=== PATIENT | female | born 1970 | race Caucasian/White ===

== ENCOUNTER 2017-01-15 13:08 | Emergency (ER) | payer OTHER ==
[~2017-01-15] VITALS: Ht 160 cm; Wt 80.0 kg
[~2017-01-15 13:08] MED LIST: CELE20TA PO; IMIT25TA PO; LORTA5 PO; SUMA50TA2 PO; XANA0.5T PO
[2017-01-15 13:09] VITALS: BP 124/74; PULSE 71; RESP 14; TEMP 98.5; O2SAT 98
--- NOTE | 2017-01-15 13:26 | PD ---
Physical Exam Date Seen by Provider: Jan 15, 2017 Time Seen by Provider: 13:23 Narrative 46 YOWF C/O INSECT BITE YEST. NOW GETTING RED AND SWOLLEN. 8/10 PAIN. FEVER 101 THIS AM VS REVIEWED AWAITING BED PLACEMENT Data Data Last Documented VS Vital Signs Date Time Temp Pulse Resp B/P Pulse Ox O2 Delivery O2 Flow Rate FiO2 01/15/17 13:09 98.5 71 14 124/74 98 Room Air MDM Supervised Visit with CARROLL: Neftali Randall Jan 15, 2017 13:26
--- NOTE | 2017-01-15 13:36 | PD ---
HPI Chief Complaint: Skin Problem Time Seen by Provider: 13:36 Travel History International Travel<30 days: No Contact w/Intl Traveler<30days: No Traveled to known affect area: No History of Present Illness HPI 46-year-old female presents the emergency department with itchy, tender, erythematous, raised, area to the right anterior shoulder just over the right clavicle. Patient states she woke up with a 3 days ago has gotten progressively more erythematous, tender, and hot. She has had no specific drainage. She has felt feverish but does not know fever. He is worsening since yesterday. She's been taking Tylenol and tramadol for which she takes for her previous shoulder injury which is in a sling on the left. Pain is described as an 8 out of 10. She is allergic to morphine, penicillin, Zithromax. PFSH Past Medical History Diminished Hearing: No Headaches: Yes Musculoskeletal: Yes Respiratory: Yes (HX PLEURISY) Immunizations Current: No Migraines: Yes Past Surgical History Appendectomy: Yes Hysterectomy: Yes Other Surgery: Yes (knee and wrist) Social History Alcohol Use: Yes (RARE) Tobacco Use: Yes (8 CIG/DAY) Substance Use: No Allergies-Medications (Allergen,Severity, Reaction): Coded Allergies: azithromycin (Unverified Allergy, Severe, Swelling, 01/15/17) morphine (Unverified Allergy, Severe, Hallucinations, 01/15/17) penicillin G (Unverified Allergy, Severe, Swelling, 01/15/17) Reported Meds & Prescriptions Reported Meds & Active Scripts Active Sumatriptan Succinate 50 Mg Tab 50 Mg PO BID PRN Reported Xanax 0.5 mg (Alprazolam) Alprazolam 0.5 mg Tab Unknown Dose PO BID Stewart 5-325 mg (Hydrocodone-Acetaminophen 5-325 mg) 5 mg/325 mg Tab Unknown Dose PO Q4H PRN Imitrex (Sumatriptan Succinate) 25 Mg Tab Unknown Dose PO PRN Celexa (Citalopram Hydrobromide) 20 Mg Tab 20 Mg PO DAILY Review of Systems General / Constitutional: Positive: Chills, No: Fever Eyes: No: Visual changes HENT: No: Headaches Cardiovascular: No: Chest Pain or Discomfort Respiratory: No: Shortness of Breath Gastrointestinal: No: Abdominal Pain Genitourinary: No: Dysuria Musculoskeletal: No: Pain Skin: Positive Lesions (the history present illness), No Rash Neurologic: No: Weakness Psychiatric: No: Depression Endocrine: No: Polydipsia Hematologic/Lymphatic: No: Easy Bruising Physical Exam Narrative GENERAL: Patient appears uncomfortable but in no acute distress. SKIN: Warm and dry. Normal color. Normal turgor. Patient has obvious insect bite to the right anterior shoulder with localized induration, erythema, and swelling. It measures approximately 8 cm x 4 cm. There is no obvious abscess formation or drainage. HEAD: Atraumatic. Normocephalic. EYES: Pupils equal and round. No scleral icterus. No injection or drainage. ENT: No nasal bleeding or discharge. Mucous membranes pink and moist. Pharynx is clear. Airway is patent. NECK: Trachea midline. Supple nontender without significant lymphadenopathy. CARDIOVASCULAR: Regular rate and rhythm. RESPIRATORY: No accessory muscle use. Clear to auscultation. Breath sounds equal bilaterally. MUSCULOSKELETAL: Extremities without clubbing, cyanosis, or edema. No obvious deformities. NEUROLOGICAL: Awake and alert. No obvious cranial nerve deficits. Motor grossly within normal limits. Five out of 5 muscle strength in the arms and legs. Normal speech. PSYCHIATRIC: Appropriate mood and affect; insight and judgment normal. Data Data Last Documented VS Vital Signs Date Time Temp Pulse Resp B/P Pulse Ox O2 Delivery O2 Flow Rate FiO2 01/15/17 13:09 98.5 71 14 124/74 98 Room Air Orders Sulfamet-Trimeth Ds 800-160 Mg (Bactrim (01/15/17 13:45) Ibuprofen (Motrin) (01/15/17 13:45) [facility] Medical Decision Making Medical Screen Exam Complete: Yes Emergency Medical Condition: Yes Differential Diagnosis Insect bite. Cellulitis. MRSA. Narrative Course Patient is felt to have an infected insect bite with localized cellulitis as well as local reaction. Patient is given Bactrim DS 1 now. Patient is given ibuprofen 600 mg by mouth now. Patient will be continued on Bactrim DS twice a day 7 days per Patient also given ibuprofen 600 mg 4 times a day #40. Patient can take Tylenol as needed as well. Patient should put warm compresses to the area frequently through the day. Patient follow with her primary care physician or return to emergency department if symptoms are not improving over the next couple of days. Diagnosis Primary Impression: Insect bite Qualified Code: W57.XXXA - Insect bite, initial encounter Additional Impression: Cellulitis Qualified Code: L03.313 - Cellulitis of chest wall Referrals: Primary Care Physician Patient Instructions: Cellulitis (DC), General Instructions Additional Instructions: Patient is felt to have an infected insect bite with localized cellulitis as well as local reaction. Patient is given Bactrim DS 1 now. Patient is given ibuprofen 600 mg by mouth now. Patient will be continued on Bactrim DS twice a day 7 days per Patient also given ibuprofen 600 mg 4 times a day #40. Patient can take Tylenol as needed as well. Patient should put warm compresses to the area frequently through the day. Patient follow with her primary care physician or return to emergency department if symptoms are not improving over the next couple of days. Med/Other Pt SpecificInfo: Prescription(s) given Disposition: 01 DISCHARGE HOME Condition: Stable Sahil Andrade Jan 15, 2017 13:36
[2017-01-15] MEDS ORDERED: IBUPROFEN 600 MG TAB PO ONE (13:45)
[2017-01-15] MEDS ORDERED: SULFAMETHOXAZOLE-TRIMETHOPRIM DS 800-160 MG TAB PO ONE (13:45)
[2017-01-15] MEDS ORDERED: IBUP-232 PO (13:52)
[2017-01-15] MEDS ORDERED: BACT800T5 PO (13:52)
[2017-01-15 15:55] VITALS: RESP 14
== END 2017-01-15 14:19 | disposition home or self-care (01) ==
LOC: NEPK 13:08
DX: S40.261A Insect bite (nonvenomous) of right shoulder, initial encounter (principal); W57.XXXA Bitten or stung by nonvenomous insect and other nonvenomous arthropods, initial encounter; L03.313 Cellulitis of chest wall; F17.210 Nicotine dependence, cigarettes, uncomplicated
CPT/HCPCS: 99283

== ENCOUNTER 2017-01-16 23:28 | Emergency (ER) | payer OTHER ==
[~2017-01-16] VITALS: Ht 160 cm; Wt 77.2 kg
[~2017-01-16 23:28] MED LIST changes: +BACT800T5 PO; -CELE20TA PO; +IBUP-232 PO; -IMIT25TA PO; -LORTA5 PO; -SUMA50TA2 PO; -XANA0.5T PO
[2017-01-16 23:30] VITALS: BP 109/68; PULSE 70; RESP 16; TEMP 98.7; O2SAT 98
--- NOTE | 2017-01-17 00:04 | PD ---
HPI Chief Complaint: Skin Problem Time Seen by Provider: 00:00 Travel History International Travel<30 days: No Contact w/Intl Traveler<30days: No Traveled to known affect area: No History of Present Illness HPI 46-year-old female presents for recheck of skin infection to the right upper chest wall. Symptoms started 4 days goes a small "adair". Since then the area of redness has progressively gotten worse. She reports temperatures as high as 99. Denies any drainage from the area. She was seen yesterday and started on Bactrim but symptoms seem to have gotten worse today which prompted reevaluation. No other complaints. PFSH Past Medical History Diminished Hearing: No Headaches: Yes Musculoskeletal: Yes Respiratory: Yes (HX PLEURISY) Immunizations Current: No Migraines: Yes Past Surgical History Appendectomy: Yes Hysterectomy: Yes Other Surgery: Yes (knee and wrist) Social History Alcohol Use: Yes (RARE) Tobacco Use: Yes (8 CIG/DAY) Substance Use: No Allergies-Medications (Allergen,Severity, Reaction): Coded Allergies: azithromycin (Unverified Allergy, Severe, Swelling, 01/17/17) morphine (Unverified Allergy, Severe, Hallucinations, 01/17/17) penicillin G (Unverified Allergy, Severe, Swelling, 01/17/17) Reported Meds & Prescriptions Reported Meds & Active Scripts Active Doxycycline Hyclate 100 Mg Cap 100 Mg PO BID Ibuprofen 600 Mg Tab 600 Mg PO Q6H PRN Bactrim DS (Sulfamethoxazole-Trimethoprim) 800-160 Mg Tab 1 Tab PO BID Review of Systems Except as stated in HPI: all other systems reviewed are Neg Physical Exam Narrative GENERAL: Well-developed well-nourished female in no acute distress SKIN: Warm and dry. Examination reveals a 2 cm fluctuant abscess overlying the right clavicle. There is some surrounding erythema. There is no drainage. HEAD: Atraumatic. Normocephalic. EYES: Pupils equal and round. No scleral icterus. No injection or drainage. ENT: No nasal bleeding or discharge. Mucous membranes pink and moist. NECK: Trachea midline. No JVD. CARDIOVASCULAR: Regular rate and rhythm. No murmur appreciated. RESPIRATORY: No accessory muscle use. Clear to auscultation. Breath sounds equal bilaterally. GASTROINTESTINAL: Abdomen soft, non-tender, nondistended. Hepatic and splenic margins not palpable. MUSCULOSKELETAL: No obvious deformities. No edema. NEUROLOGICAL: Awake and alert. No obvious cranial nerve deficits. Motor grossly within normal limits. Normal speech. Data Data Last Documented VS Vital Signs Date Time Temp Pulse Resp B/P Pulse Ox O2 Delivery O2 Flow Rate FiO2 01/16/17 23:30 98.7 70 16 109/68 98 Room Air Orders Acetamin-Hydrocod 325-5 Mg ([place] 5-325 (01/17/17 00:15) Lidocai-Epi 1%-1:100,000 Inj (Xylocaine- (01/17/17 00:15) Lidocaine Pf 1% Inj (Xylocaine-Mpf 1% In (01/17/17 00:15) Doxycycline (Vibramycin) (01/17/17 00:45) MDM Medical Decision Making Medical Screen Exam Complete: Yes Emergency Medical Condition: Yes Medical Record Reviewed: Yes Differential Diagnosis Abscess, cellulitis, erysipelas, necrotizing fasciitis, osteomyelitis Narrative Course Examination reveals an abscess to the right upper chest wall superior to the clavicle with some stranding cellulitis. Plan is for incision and drainage to which consents. She is currently on Bactrim, doxycycline will be added for additional coverage pending wounds culture results. She is stable for discharge. Procedures Procedure Narrative INCISION AND DRAINAGE OF ABSCESS: The area was prepped and was sterilely draped. A subcutaneous wheal of 1% Xylocaine with a total number 6 mL was used to anesthetize the area. The area was properly anesthetized. A number [- ] scalpel was used to make a 1-cm incision across the area of the abscess. Cultures were obtained. The abscess was drained an irrigated with normal saline. Diagnosis Primary Impression: Cellulitis Qualified Code: L03.313 - Cellulitis of chest wall Additional Impression: Abscess Additional Instructions: Continue Bactrim. Doxycycline as prescribed. Wash the area with warm soap and water twice daily. Return for evidence of worsening infection. Med/Other Pt SpecificInfo: Prescription(s) given, Wound Care Scripts Doxycycline Hyclate 100 Mg [id number] Mg PO BID #20 CAP Ref 0 Prov:Mark Hubbard MD 01/17/17 Disposition: 01 DISCHARGE HOME Condition: Stable Elder Dobbins Jan 17, 2017 00:04
[2017-01-17] MEDS ORDERED: ACETAMINOPHEN/HYDROcodone 325 MG/5 MG TAB PO ONE (00:15)
[2017-01-17] MEDS ORDERED: LIDOCAINE 1%/EPINEPHrine 1:100,000 SOLN 20 ML VIAL INFIL ONE (00:15)
[2017-01-17] MEDS ORDERED: LIDOCAINE HCL 1% PF 30 ML VIAL INFIL ONE (00:15)
[2017-01-17] MEDS ORDERED: DOXY100C PO (00:42)
[2017-01-17] MEDS ORDERED: DOXYCYCLINE HYCLATE 100 MG CAP PO ONE (00:45)
[2017-01-18] MEDS ORDERED: SUMA50TA2 PO (20:06)
[2017-01-18] MEDS ORDERED: HYDR-3516 PO (20:06)
[2017-01-18] MEDS ORDERED: ALPR.5 PO (20:06)
[2017-01-18] MEDS ORDERED: CELE40TA PO (20:06)
[2017-01-18] MEDS ORDERED: FURO80TA PO (20:11)
[2017-01-18] MEDS ORDERED: K-TA10TA PO (20:11)
[2017-01-18] MEDS ORDERED: GABA800T PO (20:11)
[2017-01-18] MEDS ORDERED: PANT20TA2 PO (20:11)
== END 2017-01-17 02:15 | disposition home or self-care (01) ==
LOC: NEPK 23:28
DX: L03.313 Cellulitis of chest wall (principal)
CPT/HCPCS: 10060; 86403; 87070; 87186

== ENCOUNTER 2017-01-18 12:03 | Inpatient (IN) | payer OTHER ==
[~2017-01-18] VITALS: Ht 160 cm; Wt 77.3 kg
[~2017-01-18 12:03] MED LIST changes: +CELE20TA PO; +DOXY100C PO; +IMIT25TA PO; +LORTA5 PO; +SUMA50TA2 PO; +XANA0.5T PO
[2017-01-18 12:05] VITALS: BP 131/78; PULSE 92; RESP 16; TEMP 98.7; O2SAT 99
[2017-01-18] MEDS ORDERED: ONDANSETRON HCL 4 MG/2 ML VIAL IV PUSH ONE (14:45)
[2017-01-18] MEDS ORDERED: SODIUM CHLOR 0.9% 1000 ML INJ 1,000 ML IV ONE (14:45)
[2017-01-18] MEDS ORDERED: oxyCODONE/ACETAMINOPHEN 5 MG/325 MG TAB PO ONE (14:45)
[2017-01-18] MEDS ORDERED: VANCOMYCIN INJ 1,000 MG in SODIUM CHLOR 0.9% 250 ML INJ 250 ML IV ONE (14:45)
[2017-01-18 15:28] LABS: AUTOMATED NEUTROPHIL # 8.7 TH/MM3 (1.8-7.7); BASOPHIL # 0.1 TH/MM3 (0-0.2); BASOPHIL % 0.7 % (0.0-2.0); EOSINOPHIL # 0.1 TH/MM3 (0-0.4); EOSINOPHIL % 0.7 % (0.0-4.0); HEMATOCRIT 40.3 % (35.0-46.0); HEMO FLAGS DIFF FINAL; LYMPH % 32.7 % (9.0-44.0); LYMPHOCYTE # 4.8 TH/MM3 (1.0-4.8); MEAN CORPUSCULAR HEMOGLOBIN 28.5 PG (27.0-34.0); MEAN CORPUSCULAR HGB CONC 33.6 % (32.0-36.0); MONO % 6.5 % (0.0-8.0); NEUT % 59.4 % (16.0-70.0); PLATELET COUNT 370 TH/MM3 (150-450); RED BLOOD COUNT 4.74 MIL/MM3 (4.00-5.30); RED CELL DISTRIBUTION WIDTH 14.4 % (11.6-17.2); WHITE BLOOD COUNT 14.6 TH/MM3 (4.0-11.0)
[2017-01-18 15:38] LABS: APTT (PATIENT) 29.6 SEC (24.3-30.1); INTERNATIONAL NORMALIZED RATIO 0.9 RATIO
--- NOTE | 2017-01-18 15:43 | PD ---
HPI Chief Complaint: Skin Problem Time Seen by Provider: 14:35 Travel History International Travel<30 days: No Contact w/Intl Traveler<30days: No Traveled to known affect area: No History of Present Illness HPI Patient is a 46-year-old female comes in complaining of an abscess and redness to the right side of her chest. She has been here twice before for the same thing in the past week. She says it originally started as a small pimple on the right collarbone. She came in and got a prescription for Bactrim. She says she was taking that, but the swelling to the area got worse and she came back in. At that time the abscess was drained and she was given a prescription for doxycycline. She has been taking the Bactrim and the doxycycline together since Saturday. She has noticed it is still getting worse. The abscess has increased in size, is still minimally draining. She complains of severe pain to the collarbone. She also has noticed that the redness surrounding it has increased. She says she has had a temperature of 100.1. She denies any other complaints at this time. PFSH Past Medical History Diminished Hearing: No Headaches: Yes Musculoskeletal: Yes Respiratory: Yes (HX PLEURISY) Immunizations Current: No Migraines: Yes Tetanus Vaccination: > 5 Years Influenza Vaccination: No ?: Not LMP: PT STATES NO LONGER HAS A MENSTRUAL CYCLE Past Surgical History Appendectomy: Yes Cholecystectomy: Yes Hysterectomy: Yes (FULL 2007) Other Surgery: Yes (knee and wrist) Social History Alcohol Use: Yes (RARE) Tobacco Use: Yes (8 CIG/DAY) Substance Use: No Allergies-Medications (Allergen,Severity, Reaction): Coded Allergies: azithromycin (Unverified Allergy, Severe, Swelling, 01/18/17) morphine (Unverified Allergy, Severe, Hallucinations, 01/18/17) penicillin G (Unverified Allergy, Severe, Swelling, 01/18/17) Reported Meds & Prescriptions Reported Meds & Active Scripts Active Doxycycline Hyclate 100 Mg Cap 100 Mg PO BID Ibuprofen 600 Mg Tab 600 Mg PO Q6H PRN Bactrim DS (Sulfamethoxazole-Trimethoprim) 800-160 Mg Tab 1 Tab PO BID Review of Systems Except as stated in HPI: all other systems reviewed are Neg General / Constitutional: Positive: Fever Eyes: No: Blurred Vision HENT: No: Headaches, Lightheadedness Cardiovascular: No: Chest Pain or Discomfort Respiratory: No: Shortness of Breath Gastrointestinal: No: Nausea, Vomiting Musculoskeletal: No: Weakness Skin: Positive Change in Pigmentation, Positive Lesions Neurologic: No: Weakness, Dizziness Physical Exam Narrative GENERAL: Awake and alert, in no acute distress. SKIN: 4 cm, oval shaped abscess just above the right collarbone with large area of surrounding erythema and warmth. There is active drainage at this time. HEAD: Atraumatic. Normocephalic. EYES: Pupils equal and round. No scleral icterus. ENT: Mucous membranes pink and moist. NECK: Trachea midline. No JVD. CARDIOVASCULAR: Regular rate and rhythm. No murmur appreciated. RESPIRATORY: No accessory muscle use. Clear to auscultation. Breath sounds equal bilaterally. MUSCULOSKELETAL: No obvious deformities. No clubbing. No cyanosis. No edema. NEUROLOGICAL: Awake and alert. No obvious cranial nerve deficits. Motor grossly within normal limits. Normal speech. PSYCHIATRIC: Appropriate mood and affect; insight and judgment normal. Data Data Last Documented VS Vital Signs Date Time Temp Pulse Resp B/P Pulse Ox O2 Delivery O2 Flow Rate FiO2 01/18/17 16:08 18 01/18/17 12:05 98.7 92 131/78 99 Orders Iv Access Insert/Monitor (01/18/17 14:41) Complete Blood Count With Diff (01/18/17 14:41) Comprehensive Metabolic Panel (01/18/17 14:41) Act Partial Throm Time (Ptt) (01/18/17 14:41) Prothrombin Time / Inr (Pt) (01/18/17 14:41) Ct Thorax/ Chest W Iv Contrast (01/18/17 ) Sodium Chlor 0.9% 1000 Ml Inj (Ns 1000 M (01/18/17 14:45) Oxycodone-Acetamin 5-325 Mg (Percocet (01/18/17 14:45) Ondansetron Inj (Zofran Inj) (01/18/17 14:45) Vancomycin Inj (Vancomycin Inj) (01/18/17 14:45) Wound Culture And Gram Stain (01/18/17 14:43) Blood Culture (01/18/17 14:43) Diphenhydramine (Benadryl) (01/18/17 16:00) Iohexol 350 Inj (Omnipaque 350 Inj) (01/18/17 16:25) Lidocaine 1% Inj (50 Ml) (Xylocaine 1% I (01/18/17 16:45) Hydromorphone Pf Inj (Dilaudid Pf Inj) (01/18/17 16:45) Hydromorphone Pf Inj (Dilaudid Pf Inj) (01/18/17 17:15) Admit Order (Ed Use Only) (01/18/17 ) Levofloxacin 750 Mg Premix Inj (Levaquin (01/18/17 17:15) Labs Laboratory Tests Test 01/18/17 14:55 White Blood Count 14.6 TH/MM3 Red Blood Count 4.74 MIL/MM3 Hemoglobin 13.5 GM/DL Hematocrit 40.3 % Mean Corpuscular Volume 85.0 FL Mean Corpuscular Hemoglobin 28.5 PG Mean Corpuscular Hemoglobin 33.6 % Concent Red Cell Distribution Width 14.4 % Platelet Count 370 TH/MM3 Mean Platelet Volume 7.8 FL Neutrophils (%) (Auto) 59.4 % Lymphocytes (%) (Auto) 32.7 % Monocytes (%) (Auto) 6.5 % Eosinophils (%) (Auto) 0.7 % Basophils (%) (Auto) 0.7 % Neutrophils # (Auto) 8.7 TH/MM3 Lymphocytes # (Auto) 4.8 TH/MM3 Monocytes # (Auto) 1.0 TH/MM3 Eosinophils # (Auto) 0.1 TH/MM3 Basophils # (Auto) 0.1 TH/MM3 CBC Comment DIFF FINAL Differential Comment Prothrombin Time 10.0 SEC Prothromb Time International 0.9 RATIO Ratio Activated Partial 29.6 SEC Thromboplast Time Sodium Level 137 MEQ/L Potassium Level 3.6 MEQ/L Chloride Level 103 MEQ/L Carbon Dioxide Level 26.5 MEQ/L Anion Gap 8 MEQ/L Blood Urea Nitrogen 15 MG/DL Creatinine 0.71 MG/DL Estimat Glomerular Filtration 89 ML/MIN Rate Random Glucose 84 MG/DL Calcium Level 8.6 MG/DL Total Bilirubin 0.5 MG/DL Aspartate Amino Transf 24 U/L (AST/SGOT) Alanine Aminotransferase 37 U/L (ALT/SGPT) Alkaline Phosphatase 138 U/L Total Protein 8.0 GM/DL Albumin 3.8 GM/DL [facility] Medical Decision Making Medical Screen Exam Complete: Yes Emergency Medical Condition: Yes Medical Record Reviewed: Yes Differential Diagnosis Abscess versus cellulitis versus osteomyelitis Narrative Course Patient is a 46-year-old female comes in complaining of pain and swelling with worsening redness of her right chest. Exam shows a 4 cm abscess with large surrounding area of cellulitis. IV established, labs sent. Labs show an elevated white count of 14.6. Already taking Bactrim and doxycycline with worsening of her symptoms. Given vancomycin and Levaquin. Given pain medicine. CT of the chest shows no acute abnormalities. The abscess was drained and dressed. She'll be admitted for further management. Procedures Procedure Narrative INCISION AND DRAINAGE OF ABSCESS: The area was prepped and was sterilely draped. A subcutaneous wheal of 1 % Xylocaine with a total number 8 mL was used to anesthetize the area properly. A number 11 scalpel was used to make a 1 -cm incision across the area of the abscess. The abscess was drained, complex loculations were broken down, and irrigated with normal saline. Cultures were obtained. Sterile dressing applied. Diagnosis Primary Impression: Abscess Additional Impression: Cellulitis Qualified Code: L03.313 - Cellulitis of chest wall Admitting Information Admitting Physician Requests: Admit Condition: Stable Christa Henderson MD Jan 18, 2017 15:43
[2017-01-18 15:48] LABS: ALT (GPT) 37 U/L (10-53); ANION GAP 8 MEQ/L (5-15); AST (GOT) 24 U/L (15-37); BICARBONATE 26.5 MEQ/L (21.0-32.0); BLOOD UREA NITROGEN 15 MG/DL (7-18); CHLORIDE 103 MEQ/L (98-107); GLOMERULAR FILTRATION RATE 89 ML/MIN (>89); POTASSIUM 3.6 MEQ/L (3.5-5.1); SODIUM (NA) 137 MEQ/L (136-145)
[2017-01-18 15:56] LABS: ALKALINE PHOSPHATASE 138 U/L (45-117); TOTAL BILIRUBIN ADULT 0.5 MG/DL (0.2-1.0)
[2017-01-18] MEDS ORDERED: diphenhydrAMINE HCL 25 MG CAP PO ONE (16:00)
[2017-01-18] MEDS ORDERED: IOHEXOL 350 MG/ML 10 ML VIAL (for RAD DIAG) IV ONE (16:25)
--- NOTE | 2017-01-18 16:37 | RADRPT ---
EXAM DATE/TIME: 01/18/2017 16:20 [place] COMPARISON: CT ABDOMEN & PELVIS W CONTRAST, October 16, 2013, 23:13. INDICATIONS : Pain on right upper chest from spider bite. Evaluate for abscess. IV CONTRAST: 70 cc Omnipaque 350 (iohexol) IV RADIATION DOSE: 4.79 CTDIvol (mGy) MEDICAL HISTORY : None SURGICAL HISTORY : Appendectomy. Hysterectomy. ENCOUNTER: Initial ACUITY: 1 week PAIN SCALE: 5/10 LOCATION: Right chest TECHNIQUE: Volumetric scanning of the chest was performed. Using automated exposure control and adjustment of t he mA and/or kV according to patient size, radiation dose was kept as low as reasonably achievable to obtain optimal diagnostic quality images. DICOM format image data is available electronically for review and comparison. Follow-up recommendations for detected pulmonary nodules are based at a minimum on nodule size and pa tient risk factors according to Fleischner Society Guidelines. FINDINGS: The pulmonary parenchyma is clear. There is no pleural effusion. The heart is normal in size. There is no significant hilar or mediastinal adenopathy. No pericardial effusion is present. The limited portions of upper abdomen visualized are unremarkable. The examination does demonstrate some small, nonspecific axillary lymph nodes on the right. The large st measures 1.1 cm. No focal abscess is seen. The osseous structures are grossly intact. CONCLUSION: 1. No focal abscess of the right upper chest wall identified. 2. There some small, nonspecific right axillary lymph nodes the largest measures 1.1 cm. Mark Haile MD on January 18, 2017 at 16:32 Board Certified Radiologist. This report was verified electronically.
[2017-01-18] MEDS ORDERED: HYDROmorphone HCL PF 1 MG/ML VIAL IV PUSH ONE ×2 (16:45→17:15)
[2017-01-18] MEDS ORDERED: LIDOCAINE HCL 1% 50 ML VIAL INFIL ONE (16:45)
[2017-01-18] MEDS ORDERED: LEVOFLOXACIN 750 MG PREMIX INJ 150 ML IV ONE (17:15)
[2017-01-18] MEDS ORDERED: SODIUM CHLORIDE 0.9% FLUSH 10 ML FLUSH IV FLUSH PRN ×2 (18:45→22:00)
[2017-01-18 20:00] VITALS: BP 116/64; PULSE 61; RESP 18; TEMP 96.5; O2SAT 95
[2017-01-18] MEDS ORDERED: ALPR.5 PO ×2 (20:06)
[2017-01-18] MEDS ORDERED: SUMA50TA2 PO ×2 (20:06)
[2017-01-18] MEDS ORDERED: HYDR-3516 PO ×2 (20:06)
[2017-01-18] MEDS ORDERED: CELE40TA PO ×2 (20:06)
[2017-01-18] MEDS ORDERED: FURO80TA PO ×2 (20:11)
[2017-01-18] MEDS ORDERED: GABA800T PO ×2 (20:11)
[2017-01-18] MEDS ORDERED: PANT20TA2 PO ×2 (20:11)
[2017-01-18] MEDS ORDERED: K-TA10TA PO ×2 (20:11)
[2017-01-18] MEDS ORDERED: SODIUM CHLORIDE 0.9% FLUSH 10 ML FLUSH IV FLUSH SCH (21:00)
--- NOTE | 2017-01-18 21:13 | HHI.HP ---
[facility] Service Family Medicine Primary Care Physician Pallavi Stapleton M.D. Admission Diagnosis abscess/cellulitis, failed outpatient treatment Diagnoses: International Travel<30 Days: No Contact w/Intl Traveler<30days: No Known Affected Area: No History of Present Illness Mrs. Manning is a 46-year-old female with a past medical history of anxiety/ depression, and GERD presenting with cellulitis of the right upper chest has failed outpatient antibiotic therapy. Patient states that on 01/13/17, she noticed a "adair" developing on the anterior of her right chest near her collarbone. She states that the area was mildly pruritic and she scratched off the top of the adair. She then cleaned the area with soap and water and BadBalm antibiotic ointment on the wound. The next morning the lesion had become ross sized and erythematous. She attempted to reduce the swelling with hot compresses, but was unsuccessful. The next day, Saturday, she presented to the ED for evaluation and was given Bactrim. After 4 doses she was unable to lay down due to the pain. She then re-presented to the ER where the abscess was incised and drained. She was then discharged home with her original Bactrim in addition to a new prescription of doxycycline. the area became very sore and started to increase in size again. Saturday, today, again the ER attempted to incise and drain the lesion, but was unable to. Otherwise she has no major complaints and denies any shortness of breath, chest pain, NVD, abdominal pain, or calf tenderness. Review of Systems Constitutional: COMPLAINS OF: Fever (100.1 degree fever max), Chills Eyes: DENIES: Blurred vision Ears, nose, mouth, throat: DENIES: Throat pain, Running Nose Respiratory: DENIES: Cough, Shortness of breath Cardiovascular: DENIES: Chest pain Gastrointestinal: COMPLAINS OF: Nausea, DENIES: Abdominal pain, Constipation, Diarrhea, Vomiting Genitourinary: DENIES: Abnormal vaginal bleeding, Dysuria Musculoskeletal: COMPLAINS OF: Joint pain (R torn rotator cuff) Integumentary: COMPLAINS OF: Abnormal pigmentation, DENIES: Pruritus, Rash Hematologic/lymphatic: DENIES: Lymphadenopathy Neurologic: COMPLAINS OF: Headache Psychiatric: DENIES: Mood changes Past Family Social History Past Medical History Fibromyalgia Pleurisy Rjhze-Zcvuhtzopu-Sexzkno GERD Past Surgical History 7 R knee surgeries 3 L wrist surgeries 1 R shoulder collarbone repair Appendectomy Cholecystectomy Hysterectomy Allergies: Coded Allergies: azithromycin (Unverified Allergy, Severe, Swelling, 01/18/17) morphine (Unverified Allergy, Severe, Hallucinations, 01/18/17) penicillin G (Unverified Allergy, Severe, Swelling, 01/18/17) Family History Mother - obesity, clotting disorder, fibromyalgia Father - COPD, HTN Siblings - healthy Children - healthy Social History Lives in [facility] with her . Tobacco - 1/2 ppd 31 years Alcohol - social, once a year Illicit drugs - denies history Physical Exam Vital Signs Vital Signs Date Time Temp Pulse Resp B/P Pulse Ox O2 Delivery O2 Flow Rate FiO2 01/18/17 17:56 18 01/18/17 17:17 18 01/18/17 16:08 18 01/18/17 12:05 98.7 92 16 131/78 99 Physical Exam GENERAL: This is a well-nourished, well-developed female patient lying in bed in no acute distress. SKIN: No rashes, ecchymoses or lesions. Cool and dry. Right chest: Ovoid 4 cm x 2 cm abscess superior to the right clavicle with surrounding area with erythema and warmth. Mild active drainage onto sterile bandage s/p incision and drainage by ER staff. HEENT: Atraumatic, normocephalic with EOMI. PERRLA. Oropharynx clear without erythema or exudate. MMM. No rhinorrhea. CARDIOVASCULAR: Regular rate and rhythm without murmurs, gallops, or rubs. RESPIRATORY: Clear to auscultation bilaterally with no CRW. No increased work of breathing. GASTROINTESTINAL: Abdomen soft, non-tender, nondistended with positive bowel sounds. No masses appreciated. MUSCULOSKELETAL: Extremities without cyanosis or edema. No calf tenderness present. NEUROLOGICAL: Awake and alert. Cranial nerves II through XII intact. Motor and sensory grossly within normal limits. Five out of 5 muscle strength in all muscle groups. Normal speech. Appropriate interaction with examiner and medical staff. Normal speech and judgment. Laboratory Laboratory Tests Test 01/18/17 14:55 White Blood Count 14.6 Red Blood Count 4.74 Hemoglobin 13.5 Hematocrit 40.3 Mean Corpuscular Volume 85.0 Mean Corpuscular Hemoglobin 28.5 Mean Corpuscular Hemoglobin 33.6 Concent Red Cell Distribution Width 14.4 Platelet Count 370 Mean Platelet Volume 7.8 Neutrophils (%) (Auto) 59.4 Lymphocytes (%) (Auto) 32.7 Monocytes (%) (Auto) 6.5 Eosinophils (%) (Auto) 0.7 Basophils (%) (Auto) 0.7 Neutrophils # (Auto) 8.7 Lymphocytes # (Auto) 4.8 Monocytes # (Auto) 1.0 Eosinophils # (Auto) 0.1 Basophils # (Auto) 0.1 CBC Comment DIFF FINAL Differential Comment Prothrombin Time 10.0 Prothromb Time International 0.9 Ratio Activated Partial 29.6 Thromboplast Time Sodium Level 137 Potassium Level 3.6 Chloride Level 103 Carbon Dioxide Level 26.5 Anion Gap 8 Blood Urea Nitrogen 15 Creatinine 0.71 Estimat Glomerular Filtration 89 Rate Random Glucose 84 Calcium Level 8.6 Total Bilirubin 0.5 Aspartate Amino Transf 24 (AST/SGOT) Alanine Aminotransferase 37 (ALT/SGPT) Alkaline Phosphatase 138 Total Protein 8.0 Albumin 3.8 Date/Time Procedure Status Source Growth 01/18/17 17:12 Gram Stain - Final Resulted Wound Chest 01/18/17 17:12 Wound Culture Resulted Wound Chest Pending 01/18/17 15:00 Aerobic Blood Culture Received Blood Peripheral Pending 01/18/17 15:00 Anaerobic Blood Culture Received Blood Peripheral Pending Result Diagram: 01/18/17 1455 01/18/17 1455 Assessment and Plan Assessment and Plan Mrs. Manning is a 46-year-old female with a past medical history of anxiety/ depression, and GERD presenting with cellulitis of the right upper chest has failed outpatient antibiotic therapy Code Status Full code Discussed Condition With Dr. Márquez, ER physician Problem List: (1) Cellulitis Status: Acute Plan: Patient presented to the ER with worsening cellulitis of the right upper chest leading to abscess formation. Patient has failed outpatient antibiotic therapy. She has completed 4 doses of Bactrim and 2 doses of doxycycline prior to presenting on 01/18/17. Chest CT: No focal abscess of the right upper chest wall identified. There is some small nonspecific right axillary lymph node enlargement, the largest measuring 1.1 cm. CBC: WBC 14.6 ESR: Pending K therapy a pad ordered Medications: Hold doxycycline and Bactrim, given Levaquin in ER Vancomycin twice a day with dosing assistance from pharmacy Hydrocodone when necessary for pain, Toradol when necessary for breakthrough pain (2) Abscess Status: Acute Plan: Patient has developed a drainable abscess of right upper chest Please see plan as above (3) HTN (hypertension) Status: Chronic Plan: Patient with history of chronic hypertension Continue home Lasix (4) Depression with anxiety Status: Chronic Plan: Patient with history of depression and anxiety Continue home citalopram and Xanax when necessary daily (5) GERD (gastroesophageal reflux disease) Status: Chronic Plan: Patient with chronic GERD Continue home Protonix (6) Fibromyalgia Status: Chronic Plan: Patient with history of fibromyalgia Continue home gabapentin (7) No contraindication to deep vein thrombosis (DVT) prophylaxis Status: Acute Plan: Lovenox 40 mg daily SCD/TEDs (8) Nutrition, metabolism, and development symptoms Status: Acute Plan: Diet: Regular as tolerated Electrolytes: Within normal limits, continue to monitor Fluids: Tolerating fluids by mouth Prophylaxis: Constipation protocol, Zofran when necessary for nausea/vomiting, Tylenol when necessary for fever Physician Certification 2 Midnight Certification Type: Admission for Inpatient Services Order for Inpatient Services The services are ordered in accordance with Medicare regulations or non- Medicare payer requirements, as applicable. In the case of services not specified as inpatient-only, they are appropriately provided as inpatient services in accordance with the 2-midnight benchmark. Estimated LOS (days): 3 3 days is the estimated time the patient will need to remain in the hospital, assuming treatment plan goals are met and no additional complications. Post-Hospital Plan: Home Problem Qualifiers (1) Cellulitis: Qualified Code: L03.313 - Cellulitis of chest wall Shin Kelley MD R2 Jan 18, 2017 21:13
[2017-01-18] MEDS ORDERED: SUMAtriptan SUCCINATE 50 MG TAB PO PRN (21:45)
[2017-01-18] MEDS ORDERED: SENNOSIDES 8.6 MG TAB PO PRN (22:00)
[2017-01-18] MEDS ORDERED: Vancomycin Consult Pharmacy 1 EA OTHER SCH (22:00)
[2017-01-18] MEDS ORDERED: ACETAMINOPHEN 500 MG CPLT PO PRN (22:00)
[2017-01-18] MEDS: SODIUM CHLORIDE 0.9% FLUSH 10 ML FLUSH IV FLUSH SCH (22:00)
[2017-01-18] MEDS ORDERED: ONDANSETRON ODT 4 MG TAB PO PRN (22:00)
[2017-01-18] MEDS ORDERED: BISACODYL 10 MG SUPP RECTAL PRN (22:00)
[2017-01-18] MEDS ORDERED: ACETAMINOPHEN/HYDROcodone 325 MG/5 MG TAB PO PRN (22:00)
[2017-01-18] MEDS ORDERED: LACTULOSE SYRUP 20 GM/30 ML CUP PO PRN (22:00)
[2017-01-18] MEDS ORDERED: MAGNESIUM HYDROXIDE SUSP 30 ML CUP PO PRN (22:00)
[2017-01-18] MEDS: GABAPENTIN 400 MG CAP PO SCH (22:00)
[2017-01-18] MEDS: ALPRAZolam 0.5 MG TAB PO PRN (22:05)
[2017-01-18] MEDS: DOCUSATE SODIUM 50 MG/SENNA 8.6 MG TAB PO SCH (22:25)
[2017-01-18] MEDS: ACETAMINOPHEN/HYDROcodone 325 MG/7.5 MG TAB PO PRN (22:26)
[2017-01-18] MEDS ORDERED: VANCOMYCIN INJ 1,000 MG in SODIUM CHLOR 0.9% 250 ML INJ 250 ML IV SCH (23:00)
[2017-01-18] MEDS: ENOXAPARIN SODIUM 40 MG/0.4 ML SYRINGE SQ SCH (23:48)
[2017-01-19] VITALS (7 sets, daily range): BP systolic 91–110; BP diastolic 52–62; PULSE 54–83; RESP 17–21; TEMP 96.5–98.1; O2SAT 94–98
[2017-01-19] MEDS: ACETAMINOPHEN/HYDROcodone 325 MG/7.5 MG TAB PO PRN ×5 (03:15→19:02)
[2017-01-19] MEDS: VANCOMYCIN INJ 1,250 MG in SODIUM CHLOR 0.9% 250 ML INJ 250 ML IV SCH ×2 (03:16→15:03)
[2017-01-19] MEDS: FUROSEMIDE 80 MG TAB PO SCH (08:19)
[2017-01-19] MEDS: POTASSIUM CHLORIDE 10 MEQ CONTROLLED RELEASE TAB PO SCH (08:19)
[2017-01-19] MEDS: DOCUSATE SODIUM 50 MG/SENNA 8.6 MG TAB PO SCH ×2 (08:20→21:05)
[2017-01-19] MEDS: CITALOPRAM HYDROBROMIDE 40 MG TAB PO SCH (08:20)
[2017-01-19] MEDS: SODIUM CHLORIDE 0.9% FLUSH 10 ML FLUSH IV FLUSH SCH ×2 (08:20→21:13)
[2017-01-19] MEDS: PANTOPRAZOLE SOD 20 MG DELAYED RELEASE TAB PO SCH (08:20)
[2017-01-19] MEDS ORDERED: LIDOCAINE HCL 2% 20 ML VIAL INFIL ONE (10:30)
[2017-01-19] MEDS: KETOROLAC TROMETHAMINE 30 MG/ML (IVP) VIAL IVP PRN ×2 (10:35→16:35)
[2017-01-19] MEDS ORDERED: HYDROmorphone HCL PF 1 MG/ML VIAL IV PUSH ONE (10:45)
--- NOTE | 2017-01-19 11:58 | HHI.FPPN ---
Subjective Remarks Medicine attending note: Pleasant 46-year-old woman admitted with complicated abscess on the right anterior proximal clavicular area unresponsive to outpatient treatment. Please refer to history of emergency room visits this past week. Early on culture done in ER is suggestive of MRSA with it being coagulase positive staph. Please refer to resident history and physical for complete discussion of details on presentation. Objective Vitals Vital Signs Date Time Temp Pulse Resp B/P Pulse Ox O2 Delivery O2 Flow Rate FiO2 01/19/17 11:00 98 21 01/19/17 08:00 97.0 73 20 91/62 95 01/19/17 04:15 16 01/19/17 04:00 97.0 76 18 110/60 95 01/19/17 00:00 96.5 66 17 93/52 96 01/18/17 20:00 96.5 61 18 116/64 95 01/18/17 17:56 18 01/18/17 17:17 18 01/18/17 16:08 18 01/18/17 12:05 98.7 92 16 131/78 99 I/O 01/18/17 01/18/17 01/18/17 01/19/17 01/19/17 01/19/17 07:00 15:00 23:00 07:00 15:00 23:00 Intake Total 600 ml Balance 600 ml Intake Oral 600 ml # Voids 2 Result Diagram: 01/18/17 1455 01/18/17 1455 Objective Remarks Vital signs noted. Afebrile. Gen. appearance: Pleasant in conversation woman in no acute distress complaining of pain over the area of the abscess. Skin: Inspection of the right proximal clavicular area reveals approximately 5 -6 cm x 4 cm erythematous raised area with fibrinous drainage consistent with persistent abscess.. Please refer to resident's physical exam for complete discussion of details of admission physical exam.. A/P Assessment and Plan Clinical assessment a pleasant 46-year-old woman admitted with persistent cellulitis and abscess formation. Recommend I and D of the abscess and packing. Presumptive evidence is that this is a MRSA infection. Please refer to Dr. Thomason' procedure note for incision and drainage documentation. Patient seen and examined. Case reviewed and discussed with resident team. Agree with plan of care as discussed with me and documented in the resident note. Problem List: (1) Cellulitis Status: Acute Plan: Patient presented to the ER with worsening cellulitis of the right upper chest leading to abscess formation. Patient has failed outpatient antibiotic therapy. She has completed 4 doses of Bactrim and 2 doses of doxycycline prior to presenting on 01/18/17. Chest CT: No focal abscess of the right upper chest wall identified. There is some small nonspecific right axillary lymph node enlargement, the largest measuring 1.1 cm. CBC: WBC 14.6 ESR: Pending K therapy a pad ordered Medications: Hold doxycycline and Bactrim, given Levaquin in ER Vancomycin twice a day with dosing assistance from pharmacy Hydrocodone when necessary for pain, Toradol when necessary for breakthrough pain (2) Abscess Status: Acute Plan: Patient has developed a drainable abscess of right upper chest Please see plan as above (3) HTN (hypertension) Status: Chronic Plan: Patient with history of chronic hypertension Continue home Lasix (4) Depression with anxiety Status: Chronic Plan: Patient with history of depression and anxiety Continue home citalopram and Xanax when necessary daily (5) GERD (gastroesophageal reflux disease) Status: Chronic Plan: Patient with chronic GERD Continue home Protonix (6) Fibromyalgia Status: Chronic Plan: Patient with history of fibromyalgia Continue home gabapentin (7) No contraindication to deep vein thrombosis (DVT) prophylaxis Status: Acute Plan: Lovenox 40 mg daily SCD/TEDs (8) Nutrition, metabolism, and development symptoms Status: Acute Plan: Diet: Regular as tolerated Electrolytes: Within normal limits, continue to monitor Fluids: Tolerating fluids by mouth Prophylaxis: Constipation protocol, Zofran when necessary for nausea/vomiting, Tylenol when necessary for fever Problem Qualifiers (1) Cellulitis: Qualified Code: L03.313 - Cellulitis of chest wall Flex Fraser MD Jan 19, 2017 11:58
--- NOTE | 2017-01-19 12:22 | HHI.FPPN ---
Addendum to progress note ADDENDUM Reason for addendum: Additonal documentation Additional information Procedure note: Incision & Drainage bedside Indication: Drainable abscess on right upper chest Description of procedure: Patient signed and consented and time-out conducted. Pt prepped with Betadine and draped in normal sterile fashion. 8cc 2% plain lidocaine infiltrated in linear fashion. Incision made with #11 scalpel - incision length 2.5cm long. All areas of abscess opened and drained. Culture collected. Area packed with Iodiform ribbon. Excellent hemostasis visualized. At the conclusion of the procedure all instruments removed. No bleeding from incision noted when bandage placed. Plan for drain removal in 48hrs. Performed by Dr. Katelin Madison present and involved for all parts of procedure (Shaista Thomason MD R2) Reason for addendum: Additonal documentation Additional information Attending note: With persistent swelling and pain after initial I and D in the ER it was recommended that patient have a followup I and D to insure all the loculations were opened and drain to be placed. Flex Fraser MD (Flex Fraser MD) Shaista Thomason MD R2 Jan 19, 2017 12:22 Flex Fraser MD Jan 19, 2017 17:03
[2017-01-19 13:05] LABS: BASOPHIL % 0.5 % (0.0-2.0); EOSINOPHIL # 0.2 TH/MM3 (0-0.4); EOSINOPHIL % 2.6 % (0.0-4.0); HEMATOCRIT 35.3 % (35.0-46.0); HEMO FLAGS DIFF FINAL; LYMPH % 50.1 % (9.0-44.0); MEAN CELL VOLUME 85.4 FL (80.0-100.0); MEAN CORPUSCULAR HEMOGLOBIN 28.7 PG (27.0-34.0); MEAN CORPUSCULAR HGB CONC 33.6 % (32.0-36.0); MONO % 9.4 % (0.0-8.0); NEUT % 37.4 % (16.0-70.0); PLATELET COUNT 349 TH/MM3 (150-450); RED BLOOD COUNT 4.13 MIL/MM3 (4.00-5.30); RED CELL DISTRIBUTION WIDTH 14.4 % (11.6-17.2); WHITE BLOOD COUNT 8.1 TH/MM3 (4.0-11.0)
[2017-01-19] MEDS: ALPRAZolam 0.5 MG TAB PO PRN ×2 (13:18→23:47)
[2017-01-19 13:35] LABS: POTASSIUM 3.6 MEQ/L (3.5-5.1)
[2017-01-19 13:42] LABS: WESTERGREN SEDIMENTATION RATE 30 mm/hr (0-20)
[2017-01-19] MEDS: ONDANSETRON HCL 4 MG/2 ML VIAL IV PUSH PRN ×2 (15:09→23:52)
[2017-01-19] MEDS: GABAPENTIN 400 MG CAP PO SCH (21:05)
[2017-01-19] MEDS: ENOXAPARIN SODIUM 40 MG/0.4 ML SYRINGE SQ SCH (21:06)
[2017-01-20] VITALS: BP 111/66; PULSE 64; RESP 18; TEMP 96.4; O2SAT 93
[2017-01-20] MEDS ORDERED: PHARMACY ORDERED LAB ONE (02:45)
[2017-01-20] MEDS: VANCOMYCIN INJ 1,250 MG in SODIUM CHLOR 0.9% 250 ML INJ 250 ML IV SCH (03:11)
[2017-01-20] MEDS: KETOROLAC TROMETHAMINE 30 MG/ML (IVP) VIAL IVP PRN ×3 (03:11→20:24)
[2017-01-20 03:40] LABS: HEMATOCRIT 36.1 % (35.0-46.0); MEAN CELL VOLUME 85.7 FL (80.0-100.0); MEAN CORPUSCULAR HEMOGLOBIN 28.8 PG (27.0-34.0); MEAN CORPUSCULAR HGB CONC 33.6 % (32.0-36.0); PLATELET COUNT 326 TH/MM3 (150-450); RED BLOOD COUNT 4.21 MIL/MM3 (4.00-5.30); RED CELL DISTRIBUTION WIDTH 14.1 % (11.6-17.2); REVIEW FLAG FINAL; WHITE BLOOD COUNT 7.7 TH/MM3 (4.0-11.0)
[2017-01-20 04:00] VITALS: BP 113/52; PULSE 64; RESP 18; TEMP 97.3; O2SAT 92
[2017-01-20 04:10] LABS: VANCOMYCIN TROUGH 18.9 MCG/ML (5.0-10.0)
[2017-01-20 04:23] LABS: BICARBONATE 26.9 MEQ/L (21.0-32.0); POTASSIUM 4.2 MEQ/L (3.5-5.1)
[2017-01-20] MEDS: ACETAMINOPHEN/HYDROcodone 325 MG/7.5 MG TAB PO PRN ×2 (05:45→10:00)
[2017-01-20 08:00] VITALS: BP 90/56; PULSE 53; RESP 22; TEMP 96.9; O2SAT 91
[2017-01-20] MEDS: DOCUSATE SODIUM 50 MG/SENNA 8.6 MG TAB PO SCH ×2 (09:00→20:25)
[2017-01-20] MEDS: CITALOPRAM HYDROBROMIDE 40 MG TAB PO SCH (09:00)
[2017-01-20] MEDS: FUROSEMIDE 80 MG TAB PO SCH (09:00)
[2017-01-20] MEDS: PANTOPRAZOLE SOD 20 MG DELAYED RELEASE TAB PO SCH (09:00)
[2017-01-20] MEDS: POTASSIUM CHLORIDE 10 MEQ CONTROLLED RELEASE TAB PO SCH (09:00)
[2017-01-20] MEDS: SODIUM CHLORIDE 0.9% FLUSH 10 ML FLUSH IV FLUSH SCH ×2 (09:00→20:24)
[2017-01-20 12:00] VITALS: BP 113/58; PULSE 73; RESP 20; TEMP 97.9; O2SAT 94
[2017-01-20] MEDS: ALPRAZolam 0.5 MG TAB PO PRN ×2 (13:04→22:08)
--- NOTE | 2017-01-20 13:28 | HHI.FPPN ---
Subjective Remarks Patient seen and examined by medical team this morning. No acute events overnight per nursing staff. Vital signs remained stable. Patient states that she is doing well, but the pain in her right shoulder persists. The pain is exacerbated by movement, but is at a 6/10 at her baseline without movement. She states that the warmth and erythema has greatly improved. Otherwise she has no complaints and denies any fevers, chills, shortness of breath, chest pain, NVD, abdominal pain, or calf tenderness. Objective Vitals Vital Signs Date Time Temp Pulse Resp B/P (MAP) Pulse Ox O2 Delivery O2 Flow Rate FiO2 01/20/17 06:45 18 01/20/17 04:13 18 01/20/17 04:00 97.3 64 18 113/52 (72) 92 01/20/17 00:52 16 01/20/17 00:00 96.4 64 18 111/66 (81) 93 01/19/17 20:00 97.1 56 18 98/60 (73) 94 01/19/17 16:29 96.9 54 20 102/59 (73) 94 I/O 01/19/17 01/19/17 01/19/17 01/20/17 01/20/17 01/20/17 07:00 15:00 23:00 07:00 15:00 23:00 Intake Total 600 ml 730 ml 480 ml Balance 600 ml 730 ml 480 ml Intake Oral 600 ml 480 ml 480 ml IV Total 250 ml # Voids 2 4 8 # Bowel Movements 0 Result Diagram: 01/20/17 0300 01/20/17 0300 Objective Remarks GENERAL: Well-nourished, well-developed female lying in bed watching TV in no acute distress. SKIN: Warm and dry. No rash. Right upper chest: Inspection of the right proximal clavicular area reveals bandage covering I&D site that is clean, dry, and intact. Removal of the bandage shows a clean 3 cm incision along the abscess line with palpation revealing a 4 x 5 cm palpable abscess with sterile packing in place. No current hemorrhage or drainage appreciated. Patient tender to palpation. Erythema and warmth have greatly decreased from admission examination. HEENT: Atraumatic, normocephalic with EOMI. MMM. No rhinorrhea. No LAD, JVD appreciated. CARDIOVASCULAR: Regular rate and rhythm without obvious murmurs, gallops, or rubs. RESPIRATORY: Clear to auscultation bilaterally with no CRW. No increased work of breathing. GASTROINTESTINAL: Abdomen soft, non-tender, nondistended with positive bowel sounds. No masses appreciated. MUSCULOSKELETAL: No cyanosis or edema. Strength grossly WNL. NEURO/PSYCH: Afocal. Awake, alert, and oriented x3. Normal interaction with medical staff. Normal speech and judgment. A/P Assessment and Plan Mrs. Holcomb is a 46-year-old woman admitted with persistent cellulitis and abscess formation. S/P incision and drainage of the abscess and packing. Presumptive evidence is that this is a MRSA infection. Improving on IV antibiotics. Discharge Planning Likely tomorrow with continued improvement and drain removal. Patient to continue with by mouth antibiotics at time of discharge. Problem List: (1) Cellulitis ICD Codes: L03.90 - Cellulitis, unspecified Status: Acute Plan: Patient presented to the ER with worsening cellulitis of the right upper chest leading to abscess formation. Patient has failed outpatient antibiotic therapy. She has completed 4 doses of Bactrim and 2 doses of doxycycline prior to presenting on 01/18/17. Chest CT: No focal abscess of the right upper chest wall identified. There is some small nonspecific right axillary lymph node enlargement, the largest measuring 1.1 cm. CBC: WBC 14.6 ESR: 30 K thermia pad ordered Medications: Hold doxycycline and Bactrim, given Levaquin once in ER Vancomycin twice a day with dosing assistance from pharmacy Hydrocodone when necessary for pain, Toradol when necessary for breakthrough pain (2) Abscess ICD Codes: L02.91 - Cutaneous abscess, unspecified Status: Acute Plan: Patient has developed a drainable abscess of right upper chest Please see plan as above (3) HTN (hypertension) ICD Codes: I10 - Essential (primary) hypertension Status: Chronic Plan: Patient with history of chronic hypertension Continue home Lasix (4) Depression with anxiety ICD Codes: F41.8 - Other specified anxiety disorders Status: Chronic Plan: Patient with history of depression and anxiety Continue home citalopram and Xanax when necessary daily (5) GERD (gastroesophageal reflux disease) ICD Codes: K21.9 - Gastro-esophageal reflux disease without esophagitis Status: Chronic Plan: Patient with chronic GERD Continue home Protonix (6) Fibromyalgia ICD Codes: M79.7 - Fibromyalgia Status: Chronic Plan: Patient with history of fibromyalgia Continue home gabapentin (7) No contraindication to deep vein thrombosis (DVT) prophylaxis ICD Codes: Z78.9 - Other specified health status Status: Acute Plan: Lovenox 40 mg daily SCD/TEDs (8) Nutrition, metabolism, and development symptoms ICD Codes: R63.8 - Other symptoms and signs concerning food and fluid intake Status: Acute Plan: Diet: Regular as tolerated Electrolytes: Within normal limits, continue to monitor Fluids: Tolerating fluids by mouth Prophylaxis: Constipation protocol, Zofran when necessary for nausea/vomiting, Tylenol when necessary for fever Problem Qualifiers (1) Cellulitis: Shin Kelley MD R2 Jan 20, 2017 13:28
[2017-01-20] MEDS: ACETAMINOPHEN/HYDROcodone 325 MG/10 MG TAB PO PRN ×3 (14:13→22:08)
[2017-01-20] MEDS: VANCOMYCIN 1,000 MG/NS 250 ML IV SCH ×2 (14:14)
[2017-01-20 16:49] VITALS: BP 97/55; PULSE 61; RESP 21; TEMP 97.2; O2SAT 96
[2017-01-20 20:00] VITALS: BP 98/56; PULSE 63; RESP 17; TEMP 97; O2SAT 98
[2017-01-20] MEDS: ONDANSETRON HCL 4 MG/2 ML VIAL IV PUSH PRN (20:23)
[2017-01-20] MEDS: ENOXAPARIN SODIUM 40 MG/0.4 ML SYRINGE SQ SCH (20:24)
[2017-01-20] MEDS: GABAPENTIN 400 MG CAP PO SCH (20:24)
[2017-01-21] VITALS: BP 101/63; PULSE 72; RESP 18; TEMP 96.9; O2SAT 96
[2017-01-21] MEDS: ACETAMINOPHEN/HYDROcodone 325 MG/10 MG TAB PO PRN ×5 (03:19→22:05)
[2017-01-21] MEDS: VANCOMYCIN 1,000 MG/NS 250 ML IV SCH ×4 (03:20→15:19)
[2017-01-21 04:00] VITALS: BP 99/65; PULSE 71; RESP 18; TEMP 97.3; O2SAT 97
[2017-01-21 08:00] VITALS: BP 101/65; PULSE 89; RESP 20; TEMP 97.1; O2SAT 95
[2017-01-21] MEDS: CITALOPRAM HYDROBROMIDE 40 MG TAB PO SCH (08:26)
[2017-01-21] MEDS: FUROSEMIDE 80 MG TAB PO SCH (08:26)
[2017-01-21] MEDS: DOCUSATE SODIUM 50 MG/SENNA 8.6 MG TAB PO SCH ×3 (08:26→22:05)
[2017-01-21] MEDS: POTASSIUM CHLORIDE 10 MEQ CONTROLLED RELEASE TAB PO SCH (08:27)
[2017-01-21] MEDS: PANTOPRAZOLE SOD 20 MG DELAYED RELEASE TAB PO SCH (08:28)
[2017-01-21] MEDS: SODIUM CHLORIDE 0.9% FLUSH 10 ML FLUSH IV FLUSH SCH ×2 (08:31→22:05)
--- NOTE | 2017-01-21 10:55 | HHI.FPPN ---
Subjective Remarks Patient seen and examined bedside. No acute events overnight. Patient states she has been feeling like she is getting a cold. She admits to congestion and sore throat. Denies any fever/chills. Denies any productive sputum. Patient is continuing to complain of pain over her right upper chest where the MRSA lesion is. She states the pain has been constant and throbbing. Her pain is only moderately alleviated by IV pain medications. She has not seen any abnormal discharge from the bandage. (Shaista Thomason MD R2) Objective Vitals Vital Signs Date Time Temp Pulse Resp B/P (MAP) Pulse Ox O2 Delivery O2 Flow Rate FiO2 01/21/17 08:00 97.1 89 20 101/65 (77) 95 01/21/17 04:57 18 01/21/17 04:00 97.3 71 18 99/65 (76) 97 01/21/17 00:00 96.9 72 18 101/63 (76) 96 01/20/17 22:07 16 01/20/17 20:00 97.0 63 17 98/56 (70) 98 01/20/17 16:49 97.2 61 21 97/55 (69) 96 01/20/17 12:00 97.9 73 20 113/58 (76) 94 I/O 01/20/17 01/20/17 01/20/17 01/21/17 01/21/17 01/21/17 07:00 15:00 23:00 07:00 15:00 23:00 Intake Total 250 ml 480 ml 240 ml Balance 250 ml 480 ml 240 ml Intake Oral 480 ml 240 ml IV Total 250 ml # Voids 2 1 # Bowel Movements 3 1 (Shaista Thomason MD R2) Result Diagram: 01/20/17 0300 01/20/17 0300 Objective Remarks GENERAL: Well-nourished, well-developed female lying in bed watching TV in no acute distress. SKIN: Warm and dry. No rash. Right upper chest: Inspection of the right proximal clavicular area reveals bandage covering I&D site that is clean, dry, and intact. Removal of the bandage shows a clean 3 cm incision slightly more opened up than yesterday, now red and beefy in appearance. No current hemorrhage or drainage appreciated. Only a small amount of thin white mucous/pus in bottom of cavity. Patient very tender to palpation. Erythema and warmth have greatly decreased from admission examination. No extension of erythema across any areas of chest. No cellulitis present as was present on admission HEENT: Atraumatic, normocephalic with EOMI. MMM. No rhinorrhea. No LAD, JVD appreciated. CARDIOVASCULAR: Regular rate and rhythm without obvious murmurs, gallops, or rubs. RESPIRATORY: Clear to auscultation bilaterally with no CRW. No increased work of breathing. GASTROINTESTINAL: Abdomen soft, non-tender, nondistended with positive bowel sounds. No masses appreciated. MUSCULOSKELETAL: No cyanosis or edema. Strength grossly WNL. NEURO/PSYCH: Afocal. Awake, alert, and oriented x3. Normal interaction with medical staff. Normal speech and judgment. (Shaista Thomason MD R2) A/P Assessment and Plan Mrs. Holcomb is a 46-year-old woman that was admitted with persistent cellulitis and abscess formation. S/P incision and drainage of the abscess and packing of MRSA+ infection. Improving on IV antibiotics. Discharge Planning Likely tomorrow with continued improvement and drain removal. Patient to continue with by mouth antibiotics at time of discharge. (Shaista Thomason MD R2) Assessment and Plan Patient seen and examined. Case reviewed and discussed with the resident team. Agree with the plan of care as discussed with me and documented in the resident note. (Flex Fraser MD) Problem List: (1) Cellulitis ICD Codes: L03.90 - Cellulitis, unspecified Status: Acute Plan: Patient presented to the ER with worsening cellulitis of the right upper chest leading to abscess formation. Patient has failed outpatient antibiotic therapy. She has completed 4 doses of Bactrim and 2 doses of doxycycline prior to presenting on 01/18/17. Chest CT: No focal abscess of the right upper chest wall identified. There is some small nonspecific right axillary lymph node enlargement, the largest measuring 1.1 cm. CBC: WBC 14.6 ESR: 30 K thermia pad ordered Medications: Hold doxycycline and Bactrim, given Levaquin once in ER Vancomycin twice a day with dosing assistance from pharmacy Hydrocodone when necessary for pain, Toradol when necessary for breakthrough pain (2) Abscess ICD Codes: L02.91 - Cutaneous abscess, unspecified Status: Acute Plan: Patient has developed a drainable abscess of right upper chest Please see plan as above (3) HTN (hypertension) ICD Codes: I10 - Essential (primary) hypertension Status: Chronic Plan: Patient with history of chronic hypertension Continue home Lasix (4) Depression with anxiety ICD Codes: F41.8 - Other specified anxiety disorders Status: Chronic Plan: Patient with history of depression and anxiety Continue home citalopram and Xanax when necessary daily (5) GERD (gastroesophageal reflux disease) ICD Codes: K21.9 - Gastro-esophageal reflux disease without esophagitis Status: Chronic Plan: Patient with chronic GERD Continue home Protonix (6) Fibromyalgia ICD Codes: M79.7 - Fibromyalgia Status: Chronic Plan: Patient with history of fibromyalgia Continue home gabapentin (7) No contraindication to deep vein thrombosis (DVT) prophylaxis ICD Codes: Z78.9 - Other specified health status Status: Acute Plan: Lovenox 40 mg daily SCD/TEDs (8) Nutrition, metabolism, and development symptoms ICD Codes: R63.8 - Other symptoms and signs concerning food and fluid intake Status: Acute Plan: Diet: Regular as tolerated Electrolytes: Within normal limits, continue to monitor Fluids: Tolerating fluids by mouth Prophylaxis: Constipation protocol, Zofran when necessary for nausea/vomiting, Tylenol when necessary for fever (9) URI (upper respiratory infection) ICD Codes: J06.9 - Acute upper respiratory infection, unspecified Status: Acute Plan: Likely viral due to short nature -Continue to monitor -Encourage by mouth hydration (Shaista Thomason MD R2) Problem Qualifiers (1) Cellulitis: Shaista Thomason MD R2 Jan 21, 2017 10:55 Flex Fraser MD Jan 21, 2017 16:05
[2017-01-21 11:08] LABS: MEAN CELL VOLUME 85.5 FL (80.0-100.0); MEAN CORPUSCULAR HEMOGLOBIN 27.9 PG (27.0-34.0); MEAN CORPUSCULAR HGB CONC 32.6 % (32.0-36.0); PLATELET COUNT 339 TH/MM3 (150-450); RED BLOOD COUNT 4.09 MIL/MM3 (4.00-5.30); RED CELL DISTRIBUTION WIDTH 14.1 % (11.6-17.2); REVIEW FLAG FINAL
[2017-01-21 11:21] LABS: BICARBONATE 28.6 MEQ/L (21.0-32.0); POTASSIUM 4.2 MEQ/L (3.5-5.1)
[2017-01-21] MEDS: KETOROLAC TROMETHAMINE 30 MG/ML (IVP) VIAL IVP PRN ×2 (11:44→19:09)
[2017-01-21] MEDS: ALPRAZolam 0.5 MG TAB PO PRN ×2 (11:44→22:04)
[2017-01-21 12:48] VITALS: BP 104/64; PULSE 81; RESP 20; TEMP 98.9; O2SAT 95
[2017-01-21 16:00] VITALS: BP 98/57; PULSE 69; RESP 20; TEMP 96.8; O2SAT 97
[2017-01-21] MEDS ORDERED: diphenhydrAMINE HCL 25 MG CAP PO PRN (16:15)
[2017-01-21 21:19] VITALS: BP 88/51; PULSE 69; RESP 17; TEMP 97.9; O2SAT 96
[2017-01-21] MEDS: GABAPENTIN 400 MG CAP PO SCH (22:04)
[2017-01-21] MEDS: ENOXAPARIN SODIUM 40 MG/0.4 ML SYRINGE SQ SCH (22:04)
[2017-01-22] VITALS: BP 90/53; PULSE 70; RESP 18; TEMP 97.5; O2SAT 92
[2017-01-22] MEDS: ACETAMINOPHEN/HYDROcodone 325 MG/10 MG TAB PO PRN ×5 (01:59→21:09)
[2017-01-22] MEDS: KETOROLAC TROMETHAMINE 30 MG/ML (IVP) VIAL IVP PRN ×4 (01:59→23:04)
[2017-01-22] MEDS: VANCOMYCIN 1,000 MG/NS 250 ML IV SCH ×2 (02:00)
[2017-01-22] MEDS ORDERED: PHARMACY ORDERED LAB ONE (02:45)
[2017-01-22 04:00] VITALS: BP 87/50; PULSE 63; RESP 18; TEMP 96; O2SAT 94
--- NOTE | 2017-01-22 06:26 | HHI.DCPOC ---
Discharge Care Plan Diagnosis: (1) Cellulitis (2) Abscess Goals to Promote Your Health * To prevent worsening of your condition and complications * To maintain your health at the optimal level Directions to Meet Your Goals Take your medications as prescribed Follow your dietary instruction Follow activity as directed Keep your appointments as scheduled Take your immunizations and boosters as scheduled If your symptoms worsen call your PCP, if no PCP go to Urgent Care Center or Emergency Room Smoking is Dangerous to Your Health. Avoid second hand smoke Call the 24-hour hour crisis hotline for domestic abuse at Shin Kelley MD R2 Jan 22, 2017 06:26
[2017-01-22] MEDS ORDERED: SENN1TAB PO (06:33)
[2017-01-22] MEDS ORDERED: LACTTAB8 PO (06:40)
[2017-01-22] MEDS ORDERED: CLIN1CAP6 PO (06:40)
[2017-01-22 08:00] VITALS: BP 100/69; PULSE 68; RESP 16; TEMP 97.4; O2SAT 93
[2017-01-22 08:21] LABS: HEMATOCRIT 31.9 % (35.0-46.0); MEAN CELL VOLUME 85.5 FL (80.0-100.0); MEAN CORPUSCULAR HEMOGLOBIN 28.3 PG (27.0-34.0); PLATELET COUNT 294 TH/MM3 (150-450); RED BLOOD COUNT 3.73 MIL/MM3 (4.00-5.30); REVIEW FLAG FINAL; WHITE BLOOD COUNT 16.4 TH/MM3 (4.0-11.0)
[2017-01-22] MEDS ORDERED: LACTULOSE SYRUP 20 GM/30 ML CUP PO PRN (08:30)
[2017-01-22] MEDS ORDERED: SENNOSIDES 8.6 MG TAB PO PRN (08:30)
[2017-01-22] MEDS ORDERED: MAGNESIUM HYDROXIDE SUSP 30 ML CUP PO PRN (08:30)
[2017-01-22] MEDS ORDERED: BISACODYL 10 MG SUPP RECTAL PRN (08:30)
[2017-01-22] MEDS: FUROSEMIDE 80 MG TAB PO SCH (08:44)
[2017-01-22] MEDS: DOCUSATE SODIUM 50 MG/SENNA 8.6 MG TAB PO SCH ×2 (08:44→21:09)
[2017-01-22] MEDS: LACTOBACILLUS ACIDOPHILUS TAB PO SCH ×3 (08:44→19:46)
[2017-01-22] MEDS: POTASSIUM CHLORIDE 10 MEQ CONTROLLED RELEASE TAB PO SCH (08:45)
[2017-01-22] MEDS: CITALOPRAM HYDROBROMIDE 40 MG TAB PO SCH (08:45)
[2017-01-22] MEDS: PANTOPRAZOLE SOD 20 MG DELAYED RELEASE TAB PO SCH (08:45)
[2017-01-22] MEDS: SODIUM CHLORIDE 0.9% FLUSH 10 ML FLUSH IV FLUSH SCH ×2 (08:46→21:10)
[2017-01-22 08:50] VITALS: BP 107/65; PULSE 82; RESP 16; TEMP 98.6
[2017-01-22 09:00] LABS: BICARBONATE 27.9 MEQ/L (21.0-32.0); POTASSIUM 3.9 MEQ/L (3.5-5.1)
[2017-01-22] MEDS ORDERED: HYDR-3583 PO (10:57)
--- NOTE | 2017-01-22 11:14 | HHI.FPPN ---
Subjective Remarks Patient is seen and examined bedside. Patient in no acute distress. Patient has no new pain overnight. She continues to complain of pain over her abscess that has been drained. Her main concern is whether she will be able to find a PCP follow-up with. The patient denies any fevers/chills overnight. Patient denies any chest pain/shortness of breath/dizziness. (Shaista Thomason MD R2) Objective Vitals Vital Signs Date Time Temp Pulse Resp B/P (MAP) Pulse Ox O2 Delivery O2 Flow Rate FiO2 01/22/17 08:50 98.6 82 16 107/65 (79) 01/22/17 04:00 96.0 63 18 87/50 (62) 94 01/22/17 03:40 16 01/22/17 03:38 16 01/22/17 00:00 97.5 70 18 90/53 (65) 92 01/21/17 21:19 97.9 69 17 88/51 (63) 96 01/21/17 16:00 96.8 69 20 98/57 (71) 97 01/21/17 12:48 98.9 81 20 104/64 (77) 95 I/O 01/21/17 01/21/17 01/21/17 01/22/17 01/22/17 01/22/17 07:00 15:00 23:00 07:00 15:00 23:00 Intake Total 240 ml 480 ml Balance 240 ml 480 ml Intake Oral 240 ml 480 ml # Voids 1 6 2 # Bowel Movements 1 (Shaista Thomason MD R2) Result Diagram: 01/22/17 0756 01/22/17 0756 Objective Remarks GENERAL: Well-nourished, well-developed female lying in bed watching TV in no acute distress. SKIN: Warm and dry. No rash. Right upper chest: Inspection of the right proximal clavicular area reveals bandage covering I&D site that is clean, dry, and intact. Removal of the bandage shows a clean 3 cm incision that is the same as yesterday, red and beefy in appearance. The redness and irritation has decreased since yesterday. No current hemorrhage or drainage appreciated. Only a small amount of thin white mucous/pus in bottom of cavity. Patient very tender to palpation. Erythema and warmth have greatly decreased from admission examination. No extension of erythema across any areas of chest. No cellulitis present as was present on admission. Packing is removed from the cavity and bandage is replaced HEENT: Atraumatic, normocephalic with EOMI. MMM. No rhinorrhea. No LAD, JVD appreciated. CARDIOVASCULAR: Regular rate and rhythm without obvious murmurs, gallops, or rubs. RESPIRATORY: Clear to auscultation bilaterally with no CRW. No increased work of breathing. GASTROINTESTINAL: Abdomen soft, non-tender, nondistended with positive bowel sounds. No masses appreciated. MUSCULOSKELETAL: No cyanosis or edema. Strength grossly WNL. NEURO/PSYCH: Afocal. Awake, alert, and oriented x3. Normal interaction with medical staff. Normal speech and judgment. (Shaista Thomason MD R2) A/P Assessment and Plan Patient seen and examined. Case reviewed and discussed with the resident team. Agree with the plan of care as discussed with me and documented in the resident note. Discharge Planning Likely tomorrow with continued improvement and drain removal. Patient to continue with by mouth antibiotics at time of discharge. (Shaista Thomason MD R2) Attending Attestation Patient seen and examined. Case reviewed and discussed with the resident team. Agree with plan of care as discussed with me and documented in the resident note. When I went in to see her today, she stated that she would be able to see Dr Coreas's who is a nurse practitioner and has been her primary care provider for many years. Ms Manning had some question about follow up but had resolved it by the time I saw her. We discussed the reasons why her infection worsened over the initial days as she had an abscess and needed it completely drained. I explained that abx and her immune system could not work very well in the middle of an abscess but today on exam there is no fluctuance and very little surrounding erythema. The wound is completely open and there is no pocket of abscess left. I answered all her questions and assured her that if she worsened for any reason she could return to the hospital. Her WBC is still up but is decreasing and clinically she is so much better that she should be a safe discharge. She was given 10 mg of norco #20 as that is what she was taking here. (Renetta Plascencia MD) Problem List: (1) Cellulitis ICD Codes: L03.90 - Cellulitis, unspecified Status: Acute Plan: Patient presented to the ER with worsening cellulitis of the right upper chest leading to abscess formation. Patient has failed outpatient antibiotic therapy. She has completed 4 doses of Bactrim and 2 doses of doxycycline prior to presenting on 01/18/17. Chest CT: No focal abscess of the right upper chest wall identified. There is some small nonspecific right axillary lymph node enlargement, the largest measuring 1.1 cm. CBC: WBC 14.6 ESR: 30 K thermia pad ordered Medications: Hold doxycycline and Bactrim, given Levaquin once in ER Vancomycin twice a day with dosing assistance from pharmacy Hydrocodone when necessary for pain, Toradol when necessary for breakthrough pain - plan to D/C this afternoon with PO antibiotics (2) Abscess ICD Codes: L02.91 - Cutaneous abscess, unspecified Status: Acute Plan: Patient has developed a drainable abscess of right upper chest Please see plan as above (3) HTN (hypertension) ICD Codes: I10 - Essential (primary) hypertension Status: Chronic Plan: Patient with history of chronic hypertension Continue home Lasix (4) Depression with anxiety ICD Codes: F41.8 - Other specified anxiety disorders Status: Chronic Plan: Patient with history of depression and anxiety Continue home citalopram and Xanax when necessary daily (5) GERD (gastroesophageal reflux disease) ICD Codes: K21.9 - Gastro-esophageal reflux disease without esophagitis Status: Chronic Plan: Patient with chronic GERD Continue home Protonix (6) Fibromyalgia ICD Codes: M79.7 - Fibromyalgia Status: Chronic Plan: Patient with history of fibromyalgia Continue home gabapentin (7) No contraindication to deep vein thrombosis (DVT) prophylaxis ICD Codes: Z78.9 - Other specified health status Status: Acute Plan: Lovenox 40 mg daily SCD/TEDs (8) Nutrition, metabolism, and development symptoms ICD Codes: R63.8 - Other symptoms and signs concerning food and fluid intake Status: Acute Plan: Diet: Regular as tolerated Electrolytes: Within normal limits, continue to monitor Fluids: Tolerating fluids by mouth Prophylaxis: Constipation protocol, Zofran when necessary for nausea/vomiting, Tylenol when necessary for fever (9) URI (upper respiratory infection) ICD Codes: J06.9 - Acute upper respiratory infection, unspecified Status: Acute Plan: Likely viral due to short nature -Continue to monitor -Encourage by mouth hydration (Shaista Thomason MD R2) Problem Qualifiers (1) Cellulitis: Shaista Thomason MD R2 Jan 22, 2017 11:14 Renetta Plascencia MD Jan 22, 2017 15:28
--- NOTE | 2017-01-22 11:16 | PD.PN.STU ---
Subjective Remarks 46 yo F admitted for right upper chest abscess with failed outpatient treatment , culture + for MRSA, s/p incision and drainage (01/19/17) and repacking (01/21/17 ) Patient seen and examined bedside. No acute events overnight. Patient reports that she still feels as if she is getting a cold. Her pain from the MRSA lesion has lessened. It was repacked yesterday. The dressings are being changed at least once a day and it is draining less than before. She is concerned about return of the lesion once discharged. She has insurance but her previous PCP is no longer in her plan and visits to that office are too costly for her. She was instructed to call her insurance company to find a new in-network PCP. She reports constipation but 4 bowel movements were recorded yesterday. She denies any fever/chills, productive sputum, nausea/vomiting or abdominal pain. Objective Vitals Vital Signs Date Time Temp Pulse Resp B/P (MAP) Pulse Ox O2 Delivery O2 Flow Rate FiO2 01/22/17 08:50 98.6 82 16 107/65 (79) 01/22/17 04:00 96.0 63 18 87/50 (62) 94 01/22/17 03:40 16 01/22/17 03:38 16 01/22/17 00:00 97.5 70 18 90/53 (65) 92 01/21/17 21:19 97.9 69 17 88/51 (63) 96 01/21/17 16:00 96.8 69 20 98/57 (71) 97 01/21/17 12:48 98.9 81 20 104/64 (77) 95 I/O 01/21/17 01/21/17 01/21/17 01/22/17 01/22/17 01/22/17 07:00 15:00 23:00 07:00 15:00 23:00 Intake Total 240 ml 480 ml Balance 240 ml 480 ml Intake Oral 240 ml 480 ml # Voids 1 6 2 # Bowel Movements 1 Result Diagram: 01/22/17 0756 01/22/17 0756 Objective Remarks GENERAL: Well-nourished, well-developed female lying in bed watching TV in no acute distress. SKIN: Warm and dry. No rash. Right upper chest: Inspection of the right proximal clavicular area reveals bandage covering I&D site that is clean, dry, and intact. Removal of the bandage shows a clean 3 cm incision, slightly opened. It is less erythematous than yesterday. No current hemorrhage or drainage appreciated. Iodoform packing removed. Erythema and warmth have greatly decreased from admission examination. No extension of erythema across any areas of chest. No cellulitis present as was present on admission. HEENT: Atraumatic, normocephalic with EOMI. MMM. No rhinorrhea. No LAD, JVD appreciated. CARDIOVASCULAR: Regular rate and rhythm without obvious murmurs, gallops, or rubs. RESPIRATORY: Clear to auscultation bilaterally with no CRW. No increased work of breathing. GASTROINTESTINAL: Abdomen soft, non-tender, nondistended with positive bowel sounds. No masses appreciated. MUSCULOSKELETAL: No cyanosis or edema. Strength grossly WNL. NEURO/PSYCH: Afocal. Awake, alert, and oriented x3. Normal interaction with medical staff. Normal speech and judgment. A/P Assessment and Plan Mrs. Holcomb is a 46-year-old woman that was admitted with persistent cellulitis and abscess formation. Failed outpatient antibiotic treatment. S/P incision and drainage of the abscess and packing of MRSA+ infection. Right Upper Chest Abscess Patient presented to the ER with worsening cellulitis of the right upper chest leading to abscess formation. Patient has failed outpatient antibiotic therapy. She has completed 4 doses of Bactrim and 2 doses of doxycycline prior to presenting on 01/18/17. - On vancomycin BID - Hydrocodone when necessary for pain, Toradol when necessary for breakthrough pain - Likely discharge today - Patient to continue with by mouth antibiotics at time of discharge. Hypertension Continue home Lasix Depression and Anxiety Continue home citalopram and Xanax when necessary daily GERD Continue home Protonix Fibromyalgia Continue home gabapentin DVT Prophylaxis Lovenox 40 mg daily SCD/TEDs Nutrition Metabolism and Development Diet: Regular as tolerated Electrolytes: Within normal limits, continue to monitor Fluids: Tolerating fluids by mouth Prophylaxis: Constipation protocol, Zofran when necessary for nausea/vomiting, Tylenol when necessary for fever URI Likely viral due to short nature Florinda Jones M3 Jan 22, 2017 11:16
--- NOTE | 2017-01-22 14:42 | HHI.FF ---
Face to Face Verification Diagnosis: (1) Abscess (2) Fibromyalgia Physical Therapy Order: Evaluate and Treat, Improve ambulation, Strength and gait training Occupational Therapy Order: Evaluate and Treat, Improve ADL, Gross motor coordination, Fine motor coordination I have seen patient Jessica Manning on 01/22/17. My clinical findings support the need for the requested home health care services because: Deconditioned w/ increased weakness High risk of falls I certify that my clinical findings support that this patient is homebound because: Unsteady gait/balance Shin Kelley MD R2 Jan 22, 2017 14:42
[2017-01-22] MEDS ORDERED: WALKER WHEELS/F1 MIS (14:43)
[2017-01-22 16:00] VITALS: BP 115/78; PULSE 70; RESP 18; TEMP 96.7; O2SAT 95
[2017-01-22 20:00] VITALS: BP 98/61; PULSE 68; RESP 18; TEMP 98; O2SAT 97
[2017-01-22] MEDS ORDERED: VANCOMYCIN INJ 1,250 MG in SODIUM CHLOR 0.9% 250 ML INJ 250 ML IV SCH (21:00)
[2017-01-22] MEDS: ENOXAPARIN SODIUM 40 MG/0.4 ML SYRINGE SQ SCH (21:09)
[2017-01-22] MEDS: GABAPENTIN 400 MG CAP PO SCH (21:09)
[2017-01-23 00:33] VITALS: BP 99/58; PULSE 66; RESP 18; TEMP 97.4; O2SAT 95
[2017-01-23] MEDS: ACETAMINOPHEN/HYDROcodone 325 MG/10 MG TAB PO PRN ×3 (02:42→11:02)
[2017-01-23] MEDS: KETOROLAC TROMETHAMINE 30 MG/ML (IVP) VIAL IVP PRN ×2 (05:34→11:01)
[2017-01-23 07:50] VITALS: BP 101/61; PULSE 56; RESP 20; TEMP 96.1; O2SAT 92
[2017-01-23] MEDS: POTASSIUM CHLORIDE 10 MEQ CONTROLLED RELEASE TAB PO SCH (08:40)
[2017-01-23] MEDS: LACTOBACILLUS ACIDOPHILUS TAB PO SCH (08:41)
[2017-01-23] MEDS: FUROSEMIDE 80 MG TAB PO SCH (08:41)
[2017-01-23] MEDS: PANTOPRAZOLE SOD 20 MG DELAYED RELEASE TAB PO SCH (08:41)
[2017-01-23] MEDS: SODIUM CHLORIDE 0.9% FLUSH 10 ML FLUSH IV FLUSH SCH (08:41)
[2017-01-23] MEDS: CITALOPRAM HYDROBROMIDE 40 MG TAB PO SCH (08:41)
[2017-01-23] MEDS: DOCUSATE SODIUM 50 MG/SENNA 8.6 MG TAB PO SCH (08:41)
[2017-01-23 11:50] VITALS: BP 101/63; PULSE 64; RESP 20; TEMP 97.2; O2SAT 97
--- NOTE | 2017-01-23 12:21 | HHI.FPPN ---
Subjective Remarks No events overnight. Patient is afebrile. The site is improved even from yesterday. No nausea, vomiting, diarrhea, abdominal pain, difficulty breathing. No calf tenderness. She is very eager to go home today. Discussed discharge planning including dressing changes with her extensively. (Jose Martin Horner MD R3) Objective Vitals Vital Signs Date Time Temp Pulse Resp B/P (MAP) Pulse Ox O2 Delivery O2 Flow Rate FiO2 01/23/17 07:50 96.1 56 20 101/61 (74) 92 01/23/17 07:44 16 01/23/17 00:33 97.4 66 18 99/58 (72) 95 01/22/17 20:00 98.0 68 18 98/61 (73) 97 01/22/17 17:35 18 01/22/17 16:00 96.7 70 18 115/78 (90) 95 I/O 01/22/17 01/22/17 01/22/17 01/23/17 01/23/17 01/23/17 06:59 14:59 22:59 06:59 14:59 22:59 Intake Total 1410 ml 960 ml 970 ml Balance 1410 ml 960 ml 970 ml Intake Oral 1410 ml 960 ml 720 ml IV Total 250 ml # Voids 2 6 2 # Bowel Movements 0 (Jose Martin Horner MD R3) Result Diagram: 01/22/17 0756 01/22/17 0756 Objective Remarks GENERAL: Sitting up in bed, no distress SKIN: No rashes or lesions Right upper chest with bandage that is clear, dry, and intact. Removed bandage, the area appears improved even compared to yesterday. There is a clean 3 cm incision that is healing well. Minimal erythema surrounding the site. No purulent drainage. Bandage replaced. HEENT: Atraumatic, normocephalic with EOMI. MMM. No rhinorrhea. No LAD, JVD appreciated. CARDIOVASCULAR: Regular rate and rhythm without obvious murmurs, gallops, or rubs. RESPIRATORY: Clear to auscultation bilaterally with no CRW. No increased work of breathing. GASTROINTESTINAL: Abdomen soft, non-tender, nondistended with positive bowel sounds. No masses appreciated. MUSCULOSKELETAL: No cyanosis or edema. Strength grossly WNL. NEURO/PSYCH: Afocal. Awake, alert, and oriented x3. Normal interaction with medical staff. Normal speech and judgment. Procedures I&D performed 01/19 (Jose Martin Horner MD R3) A/P Assessment and Plan 46 year old female presented with abscess and cellulitis of the right upper chest wall. Discharge Planning Will discharge home today with oral antibiotics. Will continue with clindamycin for 8 more days. Dressing to be changed daily. Keep area clean. (Jose Martin Horner MD R3) Attending Attestation Patient seen and examined. Case reviewed and discussed with the resident team. Agree with plan of care as discussed with me and documented in the resident note. she feels well and is very eager to go home. her wound is visibly better overnight (Renetta Plascencia MD) Problem List: (1) Cellulitis ICD Codes: L03.90 - Cellulitis, unspecified Status: Acute Plan: Patient presented to the ER with worsening cellulitis of the right upper chest leading to abscess formation. Patient has failed outpatient antibiotic therapy. She has completed 4 doses of Bactrim and 2 doses of doxycycline prior to presenting on 01/18/17. Vancomycin twice a day with dosing assistance from pharmacy Hydrocodone when necessary for pain - plan to D/C today with 8 more days of oral clindamycin - Daily dressing changes, keep area clean. No need for antibiotic ointment as long as not infected. (2) Abscess ICD Codes: L02.91 - Cutaneous abscess, unspecified Status: Acute Plan: Patient developed a drainable abscess of right upper chest I&D performed on 01/19 - Site is healing well and not infected (3) No contraindication to deep vein thrombosis (DVT) prophylaxis ICD Codes: Z78.9 - Other specified health status Status: Acute Plan: Lovenox 40 mg daily SCD/TEDs - D/c at discharge (4) Nutrition, metabolism, and development symptoms ICD Codes: R63.8 - Other symptoms and signs concerning food and fluid intake Status: Acute Plan: Diet: Regular as tolerated Electrolytes: Within normal limits Fluids: Tolerating fluids by mouth (Jose Martin Horner MD R3) Problem Qualifiers (1) Cellulitis: Jose Martin Horner MD R3 Jan 23, 2017 12:21 Renetta Plascencia MD Jan 23, 2017 16:14
[2017-01-23] MEDS: ALPRAZolam 0.5 MG TAB PO PRN (13:32)
--- NOTE | 2017-01-23 16:09 | HHI.DS ---
Discharge Summary Admission Date Jan 18, 2017 at 17:16 Discharge Date: Jan 23, 2017 Admitting Diagnosis abscess/cellulitis, failed outpatient treatment (1) Cellulitis Diagnosis: Principal Plan: Patient presented to the ER with worsening cellulitis of the right upper chest leading to abscess formation. Patient has failed outpatient antibiotic therapy. She has completed 4 doses of Bactrim and 2 doses of doxycycline prior to presenting on 01/18/17. Vancomycin twice a day with dosing assistance from pharmacy Hydrocodone when necessary for pain - plan to D/C today with 8 more days of oral clindamycin - Daily dressing changes, keep area clean. No need for antibiotic ointment as long as not infected. ICD Codes: L03.90 - Cellulitis, unspecified Status: Acute (2) Abscess Diagnosis: Principal Plan: Patient developed a drainable abscess of right upper chest I&D performed on 01/19 - Site is healing well and not infected ICD Codes: L02.91 - Cutaneous abscess, unspecified Status: Acute (3) No contraindication to deep vein thrombosis (DVT) prophylaxis Diagnosis: Secondary Plan: Lovenox 40 mg daily SCD/TEDs - D/c at discharge ICD Codes: Z78.9 - Other specified health status Status: Acute (4) Nutrition, metabolism, and development symptoms Diagnosis: Secondary Plan: Diet: Regular as tolerated Electrolytes: Within normal limits Fluids: Tolerating fluids by mouth ICD Codes: R63.8 - Other symptoms and signs concerning food and fluid intake Status: Acute Procedures I&D performed 01/19 Brief History Mrs. Manning is a 46-year-old female with a past medical history of anxiety/ depression, and GERD presenting with cellulitis of the right upper chest has failed outpatient antibiotic therapy. Patient states that on 01/13/17, she noticed a "adair" developing on the anterior of her right chest near her collarbone. She states that the area was mildly pruritic and she scratched off the top of the adair. She then cleaned the area with soap and water and BadBalm antibiotic ointment on the wound. The next morning the lesion had become ross sized and erythematous. She attempted to reduce the swelling with hot compresses, but was unsuccessful. The next day, Saturday, she presented to the ED for evaluation and was given Bactrim. After 4 doses she was unable to lay down due to the pain. She then re-presented to the ER where the abscess was incised and drained. She was then discharged home with her original Bactrim in addition to a new prescription of doxycycline. the area became very sore and started to increase in size again. Saturday, today, again the ER attempted to incise and drain the lesion, but was unable to. Otherwise she has no major complaints and denies any shortness of breath, chest pain, NVD, abdominal pain, or calf tenderness. CBC/BMP: 01/22/17 0756 01/22/17 0756 Significant Findings Laboratory Tests Test 01/21/17 10:32 01/22/17 02:35 01/22/17 07:56 White Blood Count 17.0 TH/MM3 (4.0-11.0) 16.4 TH/MM3 (4.0-11.0) Hemoglobin 11.4 GM/DL (11.6-15.3) 10.5 GM/DL (11.6-15.3) Random Glucose 109 MG/DL (74-106) Calcium Level 8.3 MG/DL (8.5-10.1) 8.3 MG/DL (8.5-10.1) Sodium Level 135 MEQ/L (136-145) Estimat Glomerular Filtration Rate 79 ML/MIN (>89) 75 ML/MIN (>89) Vancomycin Level Trough 17.8 MCG/ML (5.0-10.0) Red Blood Count 3.73 MIL/MM3 (4.00-5.30) Hematocrit 31.9 % (35.0-46.0) Blood Urea Nitrogen 21 MG/DL (7-18) PE at Discharge GENERAL: Sitting up in bed, no distress SKIN: No rashes or lesions Right upper chest with bandage that is clear, dry, and intact. Removed bandage, the area appears improved even compared to yesterday. There is a clean 3 cm incision that is healing well. Minimal erythema surrounding the site. No purulent drainage. Bandage replaced. HEENT: Atraumatic, normocephalic with EOMI. MMM. No rhinorrhea. No LAD, JVD appreciated. CARDIOVASCULAR: Regular rate and rhythm without obvious murmurs, gallops, or rubs. RESPIRATORY: Clear to auscultation bilaterally with no CRW. No increased work of breathing. GASTROINTESTINAL: Abdomen soft, non-tender, nondistended with positive bowel sounds. No masses appreciated. MUSCULOSKELETAL: No cyanosis or edema. Strength grossly WNL. NEURO/PSYCH: Afocal. Awake, alert, and oriented x3. Normal interaction with medical staff. Normal speech and judgment. Hospital Course 46 year old female presented with cellulitis and abscess of the right upper chest wall that failed outpatient antibiotic treatment. The symptoms started on 01/13/17 with a "adair" that became increasingly erythematous and swollen. She was treated with four doses of Bactrim before her admission with increasing cellulitis and abscess formation despite treatment. She returned to the ED and was given doxycycline in addition to Bactrim. She returned once again and was admitted for failure of outpatient treatment. Once admitted she was treated with vancomycin IV starting on 01/18 until discharge on 01/23, and the abscess was incised and drained. She remained afebrile throughout the visit and, besides the cellulitis and abscess, remained asymptomatic. She was discharged with clindamycin 300 mg PO q6hrs for an additional 8 days, and hydrocodone- acetaminophen 10/325 q4hrs PRN for pain management (#20 pills given). She was advised to change the dressings daily and to keep the area clean. She was advised to report any increasing erythema, swelling, or purulent drainage to her doctor. She is advised to follow up with her primary care physician within the week. By the time of discharge, the erythema was significantly reduced and nearly resolved, there was no more purulent drainage, and the incision site was clean and dry without any signs of infection. Pt Condition on Discharge: Good Discharge Disposition: Discharge Home Discharge Instructions DIET: Follow Instructions for: As Tolerated, No Restrictions Activities you can perform: Regular-No Restrictions Follow up Referrals: PCP Follow-up - 2-3 Days New Medications: Clindamycin (Clindamycin) 300 Mg Cap 300 MG PO Q6H for Infection, #32 CAP 0 Refills Lactobacillus Acidophilus (Lactobacillus Acidophilus) 1 Tab Tab 1 TAB PO TIDAC for Nutritional Supplement, #30 TAB 1 Refill Walker with Front Wheels (Walker with Front Wheels) 1 Mis Mis EA .ROUTE DIRECTED, #1 0 Refills Hydrocodone-Acetaminophen (Hydrocodone-Acetaminophen) 10-325 mg Tab 1 TAB PO Q4H PRN for pain MDD 5 for 4 Days, #20 TAB 0 Refills Sennosides-Docusate Sodium (Senna Plus 8.6-50 mg) 1 Tab Tab 1 TAB PO BID, #60 TAB 1 Refill Continued Medications: Alprazolam (Xanax) 0.5 Mg Tab 0.5 MG PO BID PRN for ANXIETY, TAB 0 Refills Citalopram (Celexa) 40 Mg Tab 40 MG PO DAILY for Control Depression, #30 TAB 0 Refills Furosemide (Furosemide) 80 Mg Tab 80 MG PO DAILY, #30 TAB 0 Refills Gabapentin (Gabapentin) 800 Mg Tab 800 MG PO HS, #90 TAB 0 Refills Hydrocodone-Acetaminophen (Hydrocodone-Acetaminophen) 5-325 mg Tab 1 TAB PO Q4H PRN for PAIN SCALE 1 TO 10, TAB 0 Refills Ibuprofen (Ibuprofen) 600 Mg Tab 600 MG PO Q6H PRN for Pain/Inflammation, #40 TAB Pantoprazole (Pantoprazole) 20 Mg Tab 20 MG PO DAILY for Reflux, #30 TAB 0 Refills Potassium Chloride ER (K-Tab) 10 Meq Tab 10 MEQ PO DAILY for Electrolyte Replacement, #60 TAB 0 Refills Sumatriptan (Sumatriptan) 50 Mg Tab 50 MG PO BID PRN for HEADACHE, TAB 0 Refills If a satisfactory response has not been obtained at 2 hours, a second dose may be administered Discontinued Medications: Doxycycline Hyclate (Doxycycline Hyclate) 100 Mg Cap 100 MG PO BID for Infection, #20 CAP 0 Refills Sulfamethoxazole-Trimethoprim (Bactrim DS) 800-160 Mg Tab 1 TAB PO BID for Infection, #14 TAB Jose Martin Horner MD R3 Jan 23, 2017 16:09
[2017-01-24] MEDS ORDERED: PHARMACY ORDERED LAB ONE (08:45)
== END 2017-01-23 13:48 | disposition home or self-care (01) | DRG 603 ==
LOC: NEPD 12:03 → NEDA 17:16 → HOCB 19:20
PROVIDERS: ADMIT Family Medicine; ATTEND Family Medicine
PROC: 0W983ZZ Drainage of Chest Wall, Percutaneous Approach (ICD-10-PCS; principal; 2017-01-18)
PROC: 0W9830Z Drainage of Chest Wall with Drainage Device, Percutaneous Approach (ICD-10-PCS; 2017-01-19)
DX: L02.213 Cutaneous abscess of chest wall (principal); I10 Essential (primary) hypertension; F32.9 Major depressive disorder, single episode, unspecified; F41.9 Anxiety disorder, unspecified; F17.210 Nicotine dependence, cigarettes, uncomplicated; K21.9 Gastro-esophageal reflux disease without esophagitis; L03.313 Cellulitis of chest wall; M79.7 Fibromyalgia; J06.9 Acute upper respiratory infection, unspecified
CPT/HCPCS: 10060; 71260; 80048; 80053; 80202; 85025; 85027; 85610; 85652; 85730; 86403; 87040; 87070; 87147; 87186; 94150; 96365; 96375; J1170; J1650; J1885; J1956; J2405; J3370; J7030; J7050; Q9967

== ENCOUNTER 2017-05-04 14:41 | Inpatient (IN) | payer OTHER ==
[~2017-05-04] VITALS: Ht 160 cm; Wt 90.6 kg
[~2017-05-04 14:41] MED LIST changes: +ALPR.5 PO; -BACT800T5 PO; -CELE20TA PO; +CELE40TA PO; +CLIN300C5 PO; -DOXY100C PO; +FURO80TA PO; +GABA800T PO; +HYDR-3516 PO; +HYDR-3583 PO; -IMIT25TA PO; +K-TA10TA PO; +LACTTAB8 PO; -LORTA5 PO; +PANT20TA2 PO; +SENN1TAB PO; +WALKER WHEELS/F1 MIS; -XANA0.5T PO
[2017-05-04 14:52] VITALS: BP 124/73; PULSE 79; RESP 19; TEMP 97.8; O2SAT 99
--- NOTE | 2017-05-04 14:52 | PD ---
HPI Chief Complaint: fall Time Seen by Provider: 14:52 Travel History International Travel<30 days: No Contact w/Intl Traveler<30days: No Traveled to known affect area: No History of Present Illness HPI 46-year-old female tripped on 2 stairs coming down and lost her balance and twisted both her ankles. The right is worse than the left. She did not hit her head or any other parts of the body. EMS was called and patient was brought in with her right ankle was splinted by cardboard splint. Patient is awake and answering questions appropriately. She had a left shoulder rotator cuff surgery done 10 days ago. She appears to be very anxious and in significant pain. [facility] Past Medical History Narrative Medical List of her past medical, surgical, social and family history is reviewed from the nursing note. Depression: Yes Diminished Hearing: No GERD: No Headaches: Yes Kidney Stones: Yes (20 years ) Musculoskeletal: Yes Neurologic: Yes Psychiatric: Yes Respiratory: Yes (HX PLEURISY) Immunizations Current: No Migraines: Yes Past Surgical History Appendectomy: Yes Cholecystectomy: Yes Hysterectomy: Yes (FULL 2007) Other Surgery: Yes (knee and wrist) Social History Alcohol Use: Yes (RARE) Tobacco Use: Yes (8 CIG/DAY) Substance Use: No Allergies-Medications (Allergen,Severity, Reaction): Coded Allergies: azithromycin (Unverified Allergy, Severe, Swelling, 01/18/17) morphine (Unverified Allergy, Severe, Hallucinations, 01/18/17) penicillin G (Unverified Allergy, Severe, Swelling, 01/18/17) Comments List of her allergies reviewed from the nursing note. Reported Meds & Prescriptions Reported Meds & Active Scripts Active Walker with Front Wheels (Device) 1 Mis Mis Ea .ROUTE DIRECTED Hydrocodone-Acetaminophen 10-325 mg Tab 1 Tab PO Q4H PRN MDD 5 4 Days Lactobacillus Acidophilus 1 Tab Tab 1 Tab PO TIDAC Clindamycin (Clindamycin HCl) 300 Mg Cap 300 Mg PO Q6H Senna Plus 8.6-50 mg (Sennosides-Docusate Sodium) 1 Tab Tab 1 Tab PO BID Ibuprofen 600 Mg Tab 600 Mg PO Q6H PRN Reported Pantoprazole (Pantoprazole Sodium) 20 Mg Tab 20 Mg PO DAILY K-Tab (Potassium Chloride) 10 Meq Tab 10 Meq PO DAILY Furosemide 80 Mg Tab 80 Mg PO DAILY Gabapentin 800 Mg Tab 800 Mg PO HS Hydrocodone-Acetaminophen 5-325 mg Tab 1 Tab PO Q4H PRN Sumatriptan (Sumatriptan Succinate) 50 Mg Tab 50 Mg PO BID PRN If a satisfactory response has not been obtained at 2 hours, a second dose may be administered Celexa (Citalopram Hydrobromide) 40 Mg Tab 40 Mg PO DAILY Xanax (Alprazolam) 0.5 Mg Tab 0.5 Mg PO BID PRN Narrative Medication List of her home medications reviewed from the nursing note. Review of Systems Except as stated in HPI: all other systems reviewed are Neg Musculoskeletal: Positive: Pain Physical Exam Narrative GENERAL: Awake, alert, anxious, moderate distress SKIN: Focused skin assessment warm/dry. HEAD: Atraumatic. Normocephalic. EYES: Pupils equal and round. No scleral icterus. No injection or drainage. ENT: No nasal bleeding or discharge. Mucous membranes pink and moist. NECK: Trachea midline. No JVD. CARDIOVASCULAR: Regular rate and rhythm. No murmur appreciated. RESPIRATORY: No accessory muscle use. Clear to auscultation. Breath sounds equal bilaterally. GASTROINTESTINAL: Abdomen soft, non-tender, nondistended. Hepatic and splenic margins not palpable. MUSCULOSKELETAL: No obvious deformities. No clubbing. No cyanosis. No edema. Decreased range at the right and left ankle joint due to the pain. Distal neurovascular intact. NEUROLOGICAL: Awake and alert. No obvious cranial nerve deficits. Motor grossly within normal limits. Normal speech. PSYCHIATRIC: Appropriate mood and affect; insight and judgment normal. Data Data Last Documented VS Vital Signs Date Time Temp Pulse Resp B/P (MAP) Pulse Ox O2 Delivery O2 Flow Rate FiO2 05/04/17 14:55 74 124/77 (93) 99 Room Air 05/04/17 14:52 97.8 19 Orders Orders Ketorolac Inj (Toradol Inj) (05/04/17 15:15) Ankle, Complete (Asy2baz) (05/04/17 ) Ankle, Complete (Fmg0avx) (05/04/17 ) Foot, Complete (Eye2txy) (05/04/17 ) Propofol 200 Mg/20 Ml Inj (Diprivan 200 (05/04/17 16:30) Splinting (05/04/17 ) Ankle, Limited (Ap&Lat) (05/04/17 ) Admit Order (Ed Use Only) (05/04/17 17:55) MDM Medical Decision Making Medical Screen Exam Complete: Yes Emergency Medical Condition: Yes Medical Record Reviewed: Yes Differential Diagnosis Ankle strain, ankle sprain, ankle fracture Narrative Course 3:20 PM awaiting for the x-rays to be done and resulted. Patient has been medicated for pain. 5:21 PM patient has a bimalleolar fracture with ankle subluxation of the right ankle. Patient will have a manipulation done under conscious sedation and splint will be applied. Awaiting for the orthopedist to call back for further plan. 5:37 PM I discussed the case with Dr. Dixon who wants the patient to be admitted to medical service. The ankle has been splinted. I did the conscious sedation. Please refer to my procedure note. Awaiting for the hospitalist call back. Procedures Procedure Narrative After the risks and benefits were discussed the following procedure was performed: MODERATE SEDATION: The patient was placed on a cardiac rehab nurse and pulse oximetry. An ambu bag and suction was immediately available at bedside. The patient was monitored by the nurse. Oxygen saturation , heart rate and blood pressure were monitored. Procedural sedation was acheived using 100 mg of IV propofol. The patient was observed until awake and alert. Procedural Sedation time in attendance was 20 minutes. EKG Prior to Arrival: No Physician Communication Physician Communication Dr. Dixon Diagnosis Primary Impression: Bimalleolar fracture of right ankle Qualified Codes: S82.841A - Displaced bimalleolar fracture of right lower leg , initial encounter for closed fracture Additional Impression: Subluxation of right ankle joint Qualified Codes: S93.01XA - Subluxation of right ankle joint, initial encounter Admitting Information Admitting Physician Requests: it Pérez Kiran MD May 04, 2017 14:52
[2017-05-04 14:55] VITALS: BP 124/77; PULSE 74; O2SAT 99
[2017-05-04] MEDS ORDERED: KETOROLAC TROMETHAMINE 30 MG/ML (IVP) VIAL IV PUSH ONE (15:15)
--- NOTE | 2017-05-04 16:13 | RADRPT ---
EXAM DATE/TIME: 05/04/2017 15:26 [facility] COMPARISON: No previous studies available for comparison. INDICATIONS : Pain post fall. MEDICAL HISTORY : None. SURGICAL HISTORY : None. ENCOUNTER: Initial ACUITY: 1 day PAIN SCORE: 8/10 LOCATION: Left Foot. FINDINGS: Three view examination of the left foot demonstrates no soft tissue swelling, dislocation, or fractur e. The tarsal bones appear intact. The interphalangeal and metatarsophalangeal joints are intact. The calcaneus is intact. Bony mineralization is normal. Incidentally seen anatomic variants os trigonum and os peroneum. CONCLUSION: Intact left foot. Waldo Gambino MD on May 04, 2017 at 16:10 Board Certified Radiologist. This report was verified electronically.
--- NOTE | 2017-05-04 16:15 | RADRPT ---
EXAM DATE/TIME: 05/04/2017 15:28 [facility] COMPARISON: No previous studies available for comparison. INDICATIONS : Pain post fall. MEDICAL HISTORY : None. SURGICAL HISTORY : None. ENCOUNTER: Initial ACUITY: 1 day PAIN SCORE: 10/10 LOCATION: Right Ankle. FINDINGS: There is a fracture of the distal fibula with lateral angulation deformity and also of the medial mal leolus. There is approximately 9 mm of lateral subluxation of the tibiotalar joint. CONCLUSION: Fracture subluxation of the right ankle as above. Waldo Gambino MD on May 04, 2017 at 16:11 Board Certified Radiologist. This report was verified electronically.
--- NOTE | 2017-05-04 16:17 | RADRPT ---
EXAM DATE/TIME: 05/04/2017 15:31 [facility] COMPARISON: No previous studies available for comparison. INDICATIONS : Pain post fall. MEDICAL HISTORY : None. SURGICAL HISTORY : None. ENCOUNTER: Initial ACUITY: 1 day PAIN SCORE: 8/10 LOCATION: Left Ankle. FINDINGS: Three view exam was performed of the left ankle. The bony structures are in normal alignment. No ev idence of fracture, dislocation, or soft tissue swelling. The ankle mortise is intact. No radiopaqu e foreign bodies are seen. Bony mineralization is normal. CONCLUSION: 1. No acute fracture or dislocation. Gene Peterson MD on May 04, 2017 at 16:14 Board Certified Radiologist. This report was verified electronically.
[2017-05-04] MEDS ORDERED: PROPOFOL 200 MG/20 ML AMP IV ONE (16:30)
--- NOTE | 2017-05-04 18:06 | RADRPT ---
EXAM DATE/TIME: 05/04/2017 17:46 [facility] COMPARISON: ANKLE RIGHT COMPLETE ([id number]), May 04, 2017, 15:28. ANKLE LEFT COMPLETE ([id number]), May, 15:31. INDICATIONS : Post reduction. MEDICAL HISTORY : None. SURGICAL HISTORY : None. ENCOUNTER: Initial ACUITY: 1 day PAIN SCORE: 6/10 LOCATION: Right Ankle. FINDINGS: There has been interval reduction and casting of the medial malleolus and distal fibular fractures. T here is improved medial subluxation of the tibia and fibula. No new bony fractures. Remainder of exam is unchanged. CONCLUSION: 1. Interval reduction and casting of medial malleolus and distal fibular fractures, as above . Gene Peterson MD on May 04, 2017 at 18:00 Board Certified Radiologist. This report was verified electronically.
--- NOTE | 2017-05-04 18:14 | HHI.HP ---
[facility] Service Family Medicine Primary Care Physician Unknown Admission Diagnosis ankle fracture Diagnoses: International Travel<30 Days: No Contact w/Intl Traveler<30days: No Known Affected Area: No History of Present Illness 46 yr old F presents to the ED for ankle fracture. Reports that she was stepping out on a neighbor's doorway, came down on 2 stairs, lost her balance and tripped. She landed on the concrete on her right foot and then landed no her left foot. She twisted both of her ankles, right is worse than left. She did not hit her head or have LOC. She denies dizziness and lightheadedness. She denies hx of seizures, syncope, or episodes of hypoglycemia. She denies numbness/tingling in her feet. She is able to move her toes b/l and sensation is intact. She denies HARTMANN, CP, SOB, abdominal pain, and N/V. Left Foot X-ray normal Right Foot x-ray, fracture subluxation of the right ankle, reduction and casting of medial malleolus and distal fibular fractures in the ED Review of Systems Constitutional: DENIES: Fever, Weight loss, Chills Eyes: DENIES: Blurred vision Ears, nose, mouth, throat: DENIES: Hearing loss Respiratory: DENIES: Shortness of breath Cardiovascular: DENIES: Chest pain Gastrointestinal: DENIES: Abdominal pain, Nausea, Vomiting Genitourinary: DENIES: Dysuria Musculoskeletal: COMPLAINS OF: Joint pain (b/l ankle), Joint Swelling Hematologic/lymphatic: COMPLAINS OF: Bruising (left ankle) Neurologic: DENIES: Headache, Seizures Past Family Social History Past Medical History Past Medical History Fibromyalgia Pleurisy Eaxyq-Epjnnlqnvm-Ntwlend GERD Past Surgical History Past Surgical History 7 R knee surgeries 3 L wrist surgeries 1 R shoulder collarbone repair 1 L shoulder collarbone repair Appendectomy Cholecystectomy Hysterectomy Allergies: Coded Allergies: azithromycin (Unverified Allergy, Severe, Swelling, 01/18/17) morphine (Unverified Allergy, Severe, Hallucinations, 01/18/17) penicillin G (Unverified Allergy, Severe, Swelling, 01/18/17) Family History Family History Mother - obesity, clotting disorder, fibromyalgia Father - COPD, HTN Siblings - healthy Children - healthy Social History Social History Lives in [facility] with her . Tobacco - 1/2 ppd 31 years Alcohol - social, once a year Illicit drugs - denies history Physical Exam Vital Signs Vital Signs Date Time Temp Pulse Resp B/P (MAP) Pulse Ox O2 Delivery O2 Flow Rate FiO2 05/04/17 14:55 74 124/77 (93) 99 Room Air 05/04/17 14:55 99 05/04/17 14:52 97.8 79 19 124/73 (90) 99 Physical Exam GENERAL: normal nourished patient, in NAD SKIN: bruising on left dorsal mid-foot HEAD: Atraumatic. Normocephalic. No temporal or scalp tenderness. EYES: Dilated pupils, Extraocular motions intact. No scleral icterus. No injection or drainage. ENT: Nose without bleeding, purulent drainage or septal hematoma. Throat without erythema, tonsillar hypertrophy or exudate. Uvula midline. Airway patent. NECK: Trachea midline. No JVD or lymphadenopathy. Supple, nontender, no meningeal signs. CARDIOVASCULAR: Regular rate and rhythm without murmurs, gallops, or rubs. RESPIRATORY: Clear to auscultation. Breath sounds equal bilaterally. No wheezes , rales, or rhonchi. GASTROINTESTINAL: Abdomen soft, non-tender, nondistended. No hepato-splenomegaly , or palpable masses. No guarding. MUSCULOSKELETAL: bruising on left dorsal mid-foot,tenderness on dorsal left foot upon palpation, right leg and foot in splint, moving all toes, sensation in toes intact, capillary refill < 2 secs NEUROLOGICAL: Awake and alert. Cranial nerves II through XII intact. Motor and sensory grossly within normal limits. Five out of 5 muscle strength in all muscle groups. Normal speech. Imaging Last Impressions Foot X-Ray 05/04/17 0000 Signed Impressions: Service Date/Time: Thursday, May 04, 2017 15:26 - CONCLUSION: Intact left foot. Waldo Gambino MD Ankle X-Ray 05/04/17 0000 Signed Impressions: Service Date/Time: Thursday, May 04, 2017 17:46 - CONCLUSION: 1. Interval reduction and casting of medial malleolus and distal fibular fractures, as above . MD Candelaria Fernandez VTE Risk Assessment Candelaria VTE Risk Assessment: No/Low Risk (score <= 1) Caprini Risk Assessment Model Point Value = 1 Point Value = 2 Point Value = 3 Point Value = 5 Age 41-60 Minor surgery BMI > 25 kg/m2 Swollen legs Varicose veins or History of unexplained or recurrent spontaneous Oral contraceptives or hormone replacement Sepsis (< 1 month) Serious lung disease, including pneumonia (< 1 month) Abnormal pulmonary function Acute myocardial infarction Congestive heart failure (< 1 month) History of inflammatory bowel disease Medical patient at bed rest Age 61-74 Arthroscopic surgery Major open surgery (> 45 min) Laparoscopic surgery (> 45 min) Malignancy Confined to bed (> 72 hours) Immobilizing plaster cast Central venous access Age >= 75 History of VTE Family history of VTE Factor V Leiden Prothrombin [id number] Lupus anticoagulant Anticardiolipin antibodies Elevated serum homocysteine Heparin-induced thrombocytopenia Other congenital or acquired thrombophilia Stroke (< 1 month) Elective arthroplasty Hip, pelvis, or leg fracture Acute spinal cord injury (< 1 month) Prophylaxis Regimen Total Risk Factor Score Risk Level Prophylaxis Regimen 0-1 Low Early ambulation 2 Moderate Order ONE of the following: *Sequential Compression Device (SCD) *Heparin 5000 units SQ BID 3-4 Higher Order ONE of the following medications: *Heparin 5000 units SQ TID *Enoxaparin/Lovenox 40 mg SQ daily (WT < 150 kg, CrCl > 30 mL/min) *Enoxaparin/Lovenox 30 mg SQ daily (WT < 150 kg, CrCl > 10-29 mL/min) *Enoxaparin/Lovenox 30 mg SQ BID (WT < 150 kg, CrCl > 30 mL/min) AND/OR *Sequential Compression Device (SCD) 5 or more Highest Order ONE of the following medications: *Heparin 5000 units SQ TID (Preferred with Epidurals) *Enoxaparin/Lovenox 40 mg SQ daily (WT < 150 kg, CrCl > 30 mL/min) *Enoxaparin/Lovenox 30 mg SQ daily (WT < 150 kg, CrCl > 10-29 mL/min) *Enoxaparin/Lovenox 30 mg SQ BID (WT < 150 kg, CrCl > 30 mL/min) AND *Sequential Compression Device (SCD) Assessment and Plan Assessment and Plan 46 yr F admitted for bimalleolar fracture with ankle subluxation of the right ankle from mechanical fall Code Status Full Code Discussed Condition With Dr. Alexey Porras Problem List: (1) Bimalleolar fracture of right ankle ICD Codes: S82.841A - Displaced bimalleolar fracture of right lower leg, initial encounter for closed fracture Status: Acute Plan: Left foot x-ray normal. Right foot x-ray revealed bimalleolar fracture due to mechanical fall. * s/p manipulation, conscious sedation, splinting in ED * Orthopedic consulted. ED physician spoke with Dr. Dixon. Patient having surgery in the AM. * NPO after midnight, MIVF * Pain controlled with Percocet 5-325 q6h pain 3-5, Percocet 10-325 q6h pain 6- 10, Dilaudid 2mg PO q6h for breakthrough pain (2) Subluxation of right ankle joint ICD Codes: S93.01XA - Subluxation of right ankle joint, initial encounter Status: Acute Plan: please see plan above (3) HTN (hypertension) ICD Codes: I10 - Essential (primary) hypertension Status: Chronic Plan: -Continue home med: Furosemide 80mg daily (4) Depression with anxiety ICD Codes: F41.8 - Other specified anxiety disorders Status: Chronic Plan: -Continue home med: Citalopram 40mg PO daily (5) Fibromyalgia ICD Codes: M79.7 - Fibromyalgia Status: Chronic Plan: -Continue home med: Gabapentin 800mg PO HS (6) Nutrition, metabolism, and development symptoms ICD Codes: R63.8 - Other symptoms and signs concerning food and fluid intake Status: Acute Plan: Diet: NPO after midnight Fluids: 120mls/hr after midnight Other: vitals q4h, monitor I & Os DVT ppx: none Physician Certification 2 Midnight Certification Type: Admission for Inpatient Services Order for Inpatient Services The services are ordered in accordance with Medicare regulations or non- Medicare payer requirements, as applicable. In the case of services not specified as inpatient-only, they are appropriately provided as inpatient services in accordance with the 2-midnight benchmark. Estimated LOS (days): 2 2 days is the estimated time the patient will need to remain in the hospital, assuming treatment plan goals are met and no additional complications. Post-Hospital Plan: Home Problem Qualifiers (1) Bimalleolar fracture of right ankle: Qualified Codes: S82.841A - Displaced bimalleolar fracture of right lower leg, initial encounter for closed fracture (2) Subluxation of right ankle joint: Qualified Codes: S93.01XA - Subluxation of right ankle joint, initial encounter Mignon Avila MD R1 May 04, 2017 18:14
[2017-05-04] MEDS: FUROSEMIDE 80 MG TAB PO SCH (18:30)
[2017-05-04] MEDS ORDERED: SODIUM CHLOR 0.9% 1000 ML INJ 1,000 ML IV SCH (18:31)
[2017-05-04] MEDS ORDERED: BISACODYL 10 MG SUPP RECTAL PRN (18:45)
[2017-05-04] MEDS ORDERED: MAGNESIUM HYDROXIDE SUSP 30 ML CUP PO PRN (18:45)
[2017-05-04] MEDS ORDERED: SENNOSIDES 8.6 MG TAB PO PRN (18:45)
[2017-05-04] MEDS ORDERED: NALOXONE HCL 0.4 MG/ML AMP IV PUSH PRN (18:45)
[2017-05-04] MEDS ORDERED: SODIUM CHLORIDE 0.9% FLUSH 10 ML FLUSH IV FLUSH PRN (18:45)
[2017-05-04] MEDS ORDERED: TEMAZEPAM 15 MG CAP PO PRN (18:45)
[2017-05-04] MEDS ORDERED: LACTULOSE SYRUP 20 GM/30 ML CUP PO PRN (18:45)
[2017-05-04] MEDS: POTASSIUM CHLORIDE 10 MEQ CONTROLLED RELEASE TAB PO SCH (19:33)
[2017-05-04] MEDS: CITALOPRAM HYDROBROMIDE 40 MG TAB PO SCH (19:33)
[2017-05-04] MEDS: oxyCODONE/ACETAMINOPHEN 10 MG/325 MG TAB PO PRN (19:34)
[2017-05-04 19:37] LABS: APTT (PATIENT) 27.4 SEC (24.3-30.1); PROTHROMBIN TIME - PATIENT 9.9 SEC (9.8-11.6)
[2017-05-04] MEDS: ONDANSETRON HCL 4 MG/2 ML VIAL IVP PRN (20:15)
[2017-05-04 20:25] VITALS: BP 113/69; PULSE 70; RESP 17; TEMP 97; O2SAT 98
[2017-05-04] MEDS: DOCUSATE SODIUM 50 MG/SENNA 8.6 MG TAB PO SCH (20:50)
[2017-05-04] MEDS: GABAPENTIN 400 MG CAP PO SCH (20:50)
[2017-05-04] MEDS: HYDROmorphone HCL 2 MG TAB PO PRN (20:50)
[2017-05-04] MEDS: SODIUM CHLORIDE 0.9% FLUSH 10 ML FLUSH IV FLUSH SCH (20:52)
[2017-05-04 21:05] VITALS: BP 113/69; PULSE 70; RESP 17; TEMP 97; O2SAT 98
[2017-05-04] MEDS: diphenhydrAMINE HCL 25 MG CAP PO PRN (22:13)
[2017-05-04 22:29] LABS: AUTOMATED NEUTROPHIL # 8.1 TH/MM3 (1.8-7.7); BASOPHIL % 0.3 % (0.0-2.0); EOSINOPHIL # 0.2 TH/MM3 (0-0.4); EOSINOPHIL % 1.2 % (0.0-4.0); HEMATOCRIT 34.4 % (35.0-46.0); HEMO FLAGS DIFF FINAL; LYMPH % 34.7 % (9.0-44.0); LYMPHOCYTE # 4.9 TH/MM3 (1.0-4.8); MEAN CORPUSCULAR HEMOGLOBIN 28.4 PG (27.0-34.0); MEAN CORPUSCULAR HGB CONC 33.4 % (32.0-36.0); MONO % 6.8 % (0.0-8.0); PLATELET COUNT 357 TH/MM3 (150-450); RED BLOOD COUNT 4.05 MIL/MM3 (4.00-5.30); RED CELL DISTRIBUTION WIDTH 14.5 % (11.6-17.2); WHITE BLOOD COUNT 14.2 TH/MM3 (4.0-11.0)
[2017-05-04 22:43] LABS: ANION GAP 4 MEQ/L (5-15); AST (GOT) 21 U/L (15-37); BICARBONATE 32.5 MEQ/L (21.0-32.0); BLOOD UREA NITROGEN 15 MG/DL (7-18); CHLORIDE 103 MEQ/L (98-107); GLOMERULAR FILTRATION RATE 87 ML/MIN (>89); POTASSIUM 3.3 MEQ/L (3.5-5.1); SODIUM (NA) 139 MEQ/L (136-145)
[2017-05-04 22:44] LABS: ALT (GPT) 70 U/L (10-53)
[2017-05-04 22:46] LABS: ALKALINE PHOSPHATASE 138 U/L (45-117); TOTAL BILIRUBIN ADULT 0.6 MG/DL (0.2-1.0)
[2017-05-04] MEDS ORDERED: LACTATED RINGER'S 1000 ML IV PRN (23:45)
[2017-05-04] MEDS ORDERED: POVIDONE IODINE 5% (ANTISEPSIS KIT) 4 APPLICATIONS EACH NARE PRN (23:45)
[2017-05-04] MEDS ORDERED: SODIUM CHLORID 0.9% 500 ML IV PRN (23:45)
[2017-05-04] MEDS ORDERED: CHLORHEXIDINE GLUCONATE 2 % 1 PACK (2 CLOTHS) TOPICAL PRN (23:45)
[2017-05-04] MEDS: SODIUM CHLOR 0.9% 1000 ML INJ 1,000 ML IV SCH (23:50)
[2017-05-05] VITALS (8 sets, daily range): BP systolic 97–126; BP diastolic 52–76; PULSE 71–108; RESP 17–19; TEMP 95.4–97.8; O2SAT 93–98
[2017-05-05] MEDS: oxyCODONE/ACETAMINOPHEN 10 MG/325 MG TAB PO PRN ×2 (01:45→08:41)
[2017-05-05] MEDS: HYDROmorphone HCL 2 MG TAB PO PRN (03:13)
[2017-05-05] MEDS: diphenhydrAMINE HCL 25 MG CAP PO PRN ×3 (05:29→20:07)
[2017-05-05] MEDS ORDERED: ACETAMINOPHEN 1000 MG/100 ML 0 ML IV ONE (07:15)
[2017-05-05] MEDS ORDERED: GENTAMICIN SULFATE 80 MG/2 ML VIAL ONE (07:43)
[2017-05-05] MEDS ORDERED: BUPIVACAINE HCL PF 0.5% 30 ML VIAL ONE (07:43)
[2017-05-05] MEDS ORDERED: methylPREDNISolone SOD SUCC 40 MG/1 ML VIAL ONE (08:23)
[2017-05-05] MEDS: DOCUSATE SODIUM 50 MG/SENNA 8.6 MG TAB PO SCH ×3 (08:40→20:08)
[2017-05-05] MEDS: CITALOPRAM HYDROBROMIDE 40 MG TAB PO SCH (08:40)
[2017-05-05] MEDS: POTASSIUM CHLORIDE 10 MEQ CONTROLLED RELEASE TAB PO SCH (08:40)
[2017-05-05] MEDS: FUROSEMIDE 80 MG TAB PO SCH (08:41)
[2017-05-05] MEDS: SODIUM CHLOR 0.9% 1000 ML INJ 1,000 ML IV SCH ×2 (08:43→16:40)
[2017-05-05] MEDS: SODIUM CHLORIDE 0.9% FLUSH 10 ML FLUSH IV FLUSH SCH ×2 (08:45→20:07)
[2017-05-05] MEDS ORDERED: HYDROmorphone HCL PF 1 MG/ML VIAL IV PUSH PRN ×2 (10:00)
[2017-05-05] MEDS: ONDANSETRON HCL 4 MG/2 ML VIAL IVP PRN ×2 (10:44→20:07)
[2017-05-05] MEDS ORDERED: HYDR-3288 PO (11:54)
[2017-05-05] MEDS ORDERED: ASPI1CHW4 CHEW (11:54)
--- NOTE | 2017-05-05 11:59 | HHI.FPPN ---
Subjective Remarks Patient seen, examined and discussed with medicine team. This is a 46-year-old female who was visiting a friend, went to leave and fell going down the steps fracturing her right ankle and straining her left ankle. She did not lose consciousness. Positive history of fibromyalgia, bipolar disorder and GERD. Has had multiple surgeries, most recently surgery on her left shoulder. She smokes at a [id number]-[id number] history. See history and physical examination for this admission for additional historical details. This morning, patient complains bitterly of being in pain and getting no relief with by mouth medications. She believes she would be able to go home with support from family and friends if she had a knee walker. She says that she can flex her strained left ankle without much difficulty and is able to support herself to raise her buttocks up off the bed using her left foot. Will be going to the OR this morning or later today for her bimalleolar fracture of the right ankle. Objective Vitals Vital Signs Date Time Temp Pulse Resp B/P (MAP) Pulse Ox O2 Delivery O2 Flow Rate FiO2 05/05/17 11:48 97.6 108 19 126/68 (87) 96 05/05/17 08:30 Room Air 05/05/17 07:32 97.8 82 17 97/59 (72) 96 05/05/17 04:05 Room Air 05/05/17 04:00 97.4 82 18 98/52 (67) 95 05/05/17 03:56 17 05/05/17 02:35 18 05/05/17 00:00 95.4 83 18 119/72 (88) 98 05/04/17 21:05 97.0 70 17 113/69 (84) 98 05/04/17 20:32 05/04/17 14:55 74 124/77 (93) 99 Room Air 05/04/17 14:55 99 05/04/17 14:52 97.8 79 19 124/73 (90) 99 I/O 05/04/17 05/04/17 05/04/17 05/05/17 05/05/17 05/05/17 07:00 15:00 23:00 07:00 15:00 23:00 Intake Total 360 ml 0 ml Balance 360 ml 0 ml Intake Oral 360 ml 0 ml # Voids 0 2 # Bowel Movements 0 0 Result Diagram: 05/04/17220305/04/172203 Other Results Laboratory Tests Test 05/04/17 18:50 05/04/17 22:04 Prothrombin Time 9.9 SEC Prothromb Time International Ratio 1.0 RATIO Activated Partial Thromboplast Time 27.4 SEC White Blood Count 14.2 TH/MM3 Red Blood Count 4.05 MIL/MM3 Hemoglobin 11.5 GM/DL Hematocrit 34.4 % Mean Corpuscular Volume 85.0 FL Mean Corpuscular Hemoglobin 28.4 PG Mean Corpuscular Hemoglobin Concent 33.4 % Red Cell Distribution Width 14.5 % Platelet Count 357 TH/MM3 Mean Platelet Volume 7.7 FL Neutrophils (%) (Auto) 57.0 % Lymphocytes (%) (Auto) 34.7 % Monocytes (%) (Auto) 6.8 % Eosinophils (%) (Auto) 1.2 % Basophils (%) (Auto) 0.3 % Neutrophils # (Auto) 8.1 TH/MM3 Lymphocytes # (Auto) 4.9 TH/MM3 Monocytes # (Auto) 1.0 TH/MM3 Eosinophils # (Auto) 0.2 TH/MM3 Basophils # (Auto) 0.0 TH/MM3 CBC Comment DIFF FINAL Differential Comment Blood Urea Nitrogen 15 MG/DL Creatinine 0.73 MG/DL Random Glucose 109 MG/DL Total Protein 6.8 GM/DL Albumin 3.3 GM/DL Calcium Level 8.7 MG/DL Alkaline Phosphatase 138 U/L Aspartate Amino Transf (AST/SGOT) 21 U/L Alanine Aminotransferase (ALT/SGPT) 70 U/L Total Bilirubin 0.6 MG/DL Sodium Level 139 MEQ/L Potassium Level 3.3 MEQ/L Chloride Level 103 MEQ/L Carbon Dioxide Level 32.5 MEQ/L Anion Gap 4 MEQ/L Estimat Glomerular Filtration Rate 87 ML/MIN Imaging Last Impressions Foot X-Ray 05/04/17 0000 Signed Impressions: Service Date/Time: Thursday, May 04, 2017 15:26 - CONCLUSION: Intact left foot. Waldo Gambino MD Ankle X-Ray 05/04/17 0000 Signed Impressions: Service Date/Time: Thursday, May 04, 2017 17:46 - CONCLUSION: 1. Interval reduction and casting of medial malleolus and distal fibular fractures, as above . Gene Peterson MD Objective Remarks GENERAL: Alert, complaining of pain which is 9 out of 10 when she is not moving it and much higher than that when she tries to change position. SKIN: No rashes, ecchymoses or lesions. Cool and dry. HEAD: NC/AT EYES: PERRL. EOMI. No conjunctival injection or drainage. ENT: MMM, OP without erythema, tonsillar swelling, or exudate. NECK: Supple, no lymphadenopathy. CARDIOVASCULAR: NRRR. Normal S1/S2. No MRG RESPIRATORY: CTAB. No crackles or wheezes. GASTROINTESTINAL: Abdomen soft, non-distended, nontender. No hepato- splenomegaly or palpable masses. MUSCULOSKELETAL: Extremities without clubbing, cyanosis, or edema. Jerad wrap on left ankle, plaster on right lower extremity, toes are warm, sensation is intact and she can move all her toes. NEUROLOGICAL: Awake and alert. Cranial nerves II through XII grossly intact. Moves upper extremities and left lower extremity without difficulty. Normal speech. A/P Assessment and Plan 46 yr F admitted for bimalleolar fracture with ankle subluxation of the right ankle from mechanical fall, admitted for surgical repair. Please see orders. Attending Attestation Patient seen and examined. Case reviewed and discussed with the resident team. Agree with plan of care as discussed with me and documented in the resident note. Problem List: (1) Bimalleolar fracture of right ankle ICD Codes: S82.841A - Displaced bimalleolar fracture of right lower leg, initial encounter for closed fracture Status: Acute Plan: Left foot x-ray normal. Right foot x-ray revealed bimalleolar fracture due to mechanical fall. * s/p manipulation, conscious sedation, splinting in ED * Orthopedic consulted. ED physician spoke with Dr. Dixon. Patient having surgery in the AM. * NPO after midnight, MIVF * Pain controlled with Percocet 5-325 q6h pain 3-5, Percocet 10-325 q6h pain 6- 10, Dilaudid 2mg PO q6h for breakthrough pain (2) Subluxation of right ankle joint ICD Codes: S93.01XA - Subluxation of right ankle joint, initial encounter Status: Acute Plan: please see plan above (3) HTN (hypertension) ICD Codes: I10 - Essential (primary) hypertension Status: Chronic Plan: -Continue home med: Furosemide 80mg daily (4) Depression with anxiety ICD Codes: F41.8 - Other specified anxiety disorders Status: Chronic Plan: -Continue home med: Citalopram 40mg PO daily (5) Fibromyalgia ICD Codes: M79.7 - Fibromyalgia Status: Chronic Plan: -Continue home med: Gabapentin 800mg PO HS (6) Nutrition, metabolism, and development symptoms ICD Codes: R63.8 - Other symptoms and signs concerning food and fluid intake Status: Acute Plan: Diet: NPO after midnight Fluids: 120mls/hr after midnight Other: vitals q4h, monitor I & Os DVT ppx: none Problem Qualifiers (1) Bimalleolar fracture of right ankle: (2) Subluxation of right ankle joint: Qualified Codes: S93.01XD - Subluxation of right ankle joint, subsequent encounter Kanchan Wilson MD May 05, 2017 11:59
[2017-05-05] MEDS ORDERED: MAGNESIUM HYDROXIDE SUSP 30 ML CUP PO PRN (12:00)
[2017-05-05] MEDS ORDERED: MISCELLANEOUS NURSING INFORMATION XX PRN (12:00)
[2017-05-05] MEDS ORDERED: diphenhydrAMINE HCL 25 MG CAP PO PRN (12:00)
[2017-05-05] MEDS ORDERED: MISCELLANEOUS PHARMACY INFORMATION XX ONE (12:00)
[2017-05-05] MEDS ORDERED: HYDROmorphone HCL PF 2 MG/ML VIAL IV PUSH PRN (12:00)
[2017-05-05] MEDS ORDERED: ONDANSETRON HCL 4 MG/2 ML VIAL IVP PRN (12:00)
[2017-05-05] MEDS ORDERED: Post-op Orders (for Pharmacy) MISC XX ONE (12:00)
[2017-05-05] MEDS ORDERED: CLINDAMYCIN PHOS 900 MG/6 ML VIAL ONE (12:01)
[2017-05-05] MEDS ORDERED: VANCOMYCIN HCL 1000 MG VIAL ONE (12:01)
[2017-05-05] MEDS ORDERED: methylPREDNISolone SOD SUCC 125 MG/2 ML VIAL ONE (12:06)
--- NOTE | 2017-05-05 12:13 | MB ---
cc: YARELY MOSES M.D. DATE OF CONSULTATION: 05/05/2017 REASON FOR CONSULTATION Right ankle fracture. HISTORY OF PRESENT ILLNESS 46-year-old female who was stepping down some stairs yesterday, lost her balance, tripped and fell, sustained severe traumatic injury to the right foot and ankle. She also injured her left side as well. She has significant pain and swelling on the right side with inability to stand, walk, ambulation, bear-weight. No numbness, tingling. She did not hit her head. She denies loss of conscious. She was taken to [place] [facility], x-rays confirmed evidence of a displaced bimalleolar ankle fracture. Orthopedic surgery has been consulted for further evaluation and management of injury condition. PAST MEDICAL HISTORY 1. Fibromyalgia. 2. Pleurisy. 3. Bipolar. 4. Gastric reflux. PAST SURGICAL HISTORY 1. She had multiple surgeries on the right knee. 2. She had surgery on the left wrist. 3. She had surgery on the right shoulder. 4. Recent surgery on the left shoulder about 11 days ago under workman's comp claim. 5. Appendectomy. 6. Cholecystectomy. 7. Hysterectomy. ALLERGIES AZITHROMYCIN, MORPHINE AND PENICILLIN. FAMILY HISTORY Positive for obesity, fibromyalgia, COPD, hypertension. SOCIAL HISTORY She lives in [facility] with her . She smokes half pack a day for about 30 years. She occasionally drinks alcohol. She denies drugs. REVIEW OF SYSTEMS Review of systems are negative for 10 systems, other than HPI. PHYSICAL EXAMINATION VITAL SIGNS: Temperature 97.8, pulse of 79, respirations 19, blood pressure 120/70. GENERAL: The patient is awake, lying in bed, mild distress. HEENT: Normocephalic, atraumatic. Pupils are round, reactive to light. Extraocular muscles intact. NECK: Neck is supple. LUNGS: Clear. HEART: Regular rate and rhythm. ABDOMEN: Soft, nontender. EXTREMITIES: The right ankle has swelling and tenderness to palpation. She is currently splinted. She has brisk cap refill of her toes. Sensation appears intact. She has restricted range of motion as related to her injury. X-RAYS Right ankle revealed a displaced bimalleolar ankle fracture. IMPRESSION 46-year-old female status post fall down a flight of stairs with a displaced right bimalleolar ankle fracture. PLAN Discussed the diagnosis with the patient and the patient's mother, treatment option of nonoperative treatment versus Surgery. Surgery will consist of open reduction, internal fixation. The risks of surgery were discussed which include but not limited to anesthesia, bleeding, infection, damage to nerves, blood vessels, pain, stiffness, failure of hardware, blood clots, pulmonary embolism. All questions have been answered. The patient does wish to proceed with surgery. Written consent will be obtained. Surgical site has been marked and we will proceed with scheduling surgery accordingly. Yarely Moses MD JWHuber/TLL /11:25 AM /11:55 AM
--- NOTE | 2017-05-05 13:55 | MP ---
cc: YARELY MOSES DATE OF SURGERY: 05/05/2017. PREOPERATIVE DIAGNOSIS: Right bimalleolar ankle fracture. POSTOPERATIVE DIAGNOSIS: Right bimalleolar ankle fracture. OPERATIVE PROCEDURE PERFORMED: Open reduction internal fixation right bimalleolar ankle fracture. SURGEON: Dr. Yarely Moses. STEAM DISTRIBUTION SUPERVISOR: Elaine Khanna ANESTHESIA: General. ESTIMATED BLOOD LOSS: 50 cc. TOURNIQUET TIME: Zero minutes. COMPLICATIONS: None. IMPLANTS USED: Synthes. JUSTIFICATION FOR THE PROCEDURE: This patient is a 46-year-old female who sustained traumatic injury to the right lower extremity with a displaced right bimalleolar ankle fracture. She was admitted to [facility] through the emergency room and orthopedic surgery was consulted. The patient as well as the patient's mother were counselled as to the risks, benefits and alternatives to the above-named proposed surgical procedure and the patient and mother did wish to proceed with surgery. DESCRIPTION OF THE PROCEDURE IN DETAIL: Written consent was obtained. The patient was identified by name and taken to the operating room and placed in the supine position. General anesthesia was administered as well as 900 milligrams of IV clindamycin and 1 gram of IV Vancomycin. SHE HAS A PENICILLIN ALLERGY. The right lower extremity was prepped and draped using isopropyl alcohol and Hibiclens solution and Chloraprep solution. After a time out was performed, a longitudinal incision was made over the lateral aspect of the right ankle. The periosteal layer was elevated. An open reduction was performed with the assistance of fluoroscopic guidance. Subsequently a Synthes distal fibula locking plate was applied to the lateral malleolus with a combination of both locking and nonlocking sutures were used for fixation. Fluoroscopic imaging confirmed hardware placement and fracture reduction. Attention was then turned to the medial aspect of the right ankle where a longitudinal incision was made over the medial malleolus and open reduction was performed and a K-wire was then drilled transversing the fracture. Subsequently a partially threaded 4.0 x 60 mm cannulated screw was inserted over the K-wire for internal fixation. The K-wire was removed. The surgical wounds were thoroughly irrigated with sterile saline solution. The subcutaneous layers were closed with a combination of 2-0 Vicryl and 3-0 Vicryl. The skin was closed with 3-0 nylon. Sterile dressings were applied. The patient was placed in a well-padded splint. She tolerated the procedure well. No intraoperative complications noted. NOTE Mitesh Carpio, physician server service assistant certified, was present during the entire procedure to include patient positioning and the procedure itself. The medical necessity of a physician server service assistant was indicated in this case due to the complexity of the procedure. He assisted with appropriate manipulation of the leg and also retraction of muscle, tendon, bone and neurovascular structures. He assisted with both achieving and maintaining fracture reduction along with implantation of the internal fixation device. MD MARLEEN Wilson/POLLY /1:22 PM /1:42 PM
[2017-05-05] MEDS ORDERED: *RESP: ALBUTEROL 2.5 MG/3 ML NEB (PRN) PERIprocedural Use ONLY NEB ONE (13:59)
--- NOTE | 2017-05-05 14:05 | RADRPT ---
EXAM DATE/TIME: 05/05/2017 13:13 [place] COMPARISON: ANKLE RIGHT LIMITED (AP&LAT), May 04, 2017, 17:46. INDICATIONS : ORIF right ankle in OR. MEDICAL HISTORY : None. SURGICAL HISTORY : None. ENCOUNTER: Initial ACUITY: 1 day PAIN SCORE: Non-responsive. LOCATION: Right ankle FINDINGS: There has been interval plate and screw fixation of the distal fibula with compression screw fixation of the medial malleolus. There is now anatomic alignment. Talar dome appears intact. CONCLUSION: 1. Status post internal fixation of distal fibula and medial malleolar fractures in anatomic alignmen t without new fracture. Gene Peterson MD on May 05, 2017 at 14:01 Board Certified Radiologist. This report was verified electronically.
[2017-05-05] MEDS ORDERED: DO NOT ADM ANY ANTICOAGULANT DRUGS PRN (14:30)
[2017-05-05] MEDS: ACETAMINOPHEN/HYDROcodone 325 MG/7.5 MG TAB PO PRN ×2 (15:54→20:05)
[2017-05-05] MEDS: DEXT 5%-NACL 0.45% 1000 ML INJ 1,000 ML IV SCH ×2 (15:57→21:50)
[2017-05-05] MEDS: CLINDAMYCIN INJ 900 MG in SODIUM CHLORIDE 0.9% INJ 100 ML IV SCH (20:07)
[2017-05-05] MEDS: GABAPENTIN 400 MG CAP PO SCH (20:07)
--- NOTE | 2017-05-05 22:06 | EKG ---
Date Performed: 05/05/2017 Time Performed: 09:37:38 PTAGE: 46 years EKG: Sinus rhythm LOW QRS VOLTAGE IN PRECORDIAL LEADS ST DEVIATION AND MODERATE T-WAVE ABNORMALITY, CONSIDER ANTERIOR ISCHEMIA ABNORMAL ECG PREVIOUS TRACING : 02/22/2015 01.58 Compared to prior tracing no significant change DOCTOR: David Gao Interpretating Date/Time 05/05/2017 22:06:07
[2017-05-06] MEDS: ACETAMINOPHEN/HYDROcodone 325 MG/7.5 MG TAB PO PRN ×6 (00:06→23:11)
[2017-05-06] MEDS: SODIUM CHLOR 0.9% 1000 ML INJ 1,000 ML IV SCH (01:00)
[2017-05-06 03:18] VITALS: BP 109/64; PULSE 78; RESP 18; TEMP 96.9; O2SAT 98
[2017-05-06] MEDS: ONDANSETRON HCL 4 MG/2 ML VIAL IVP PRN (04:14)
[2017-05-06] MEDS: diphenhydrAMINE HCL 25 MG CAP PO PRN ×2 (04:14→12:38)
[2017-05-06] MEDS: CLINDAMYCIN INJ 900 MG in SODIUM CHLORIDE 0.9% INJ 100 ML IV SCH ×2 (04:18→10:40)
[2017-05-06 07:27] LABS: AUTOMATED NEUTROPHIL # 16.2 TH/MM3 (1.8-7.7); BASOPHIL % 0.1 % (0.0-2.0); HEMATOCRIT 29.1 % (35.0-46.0); HEMO FLAGS DIFF FINAL; LYMPH % 11.4 % (9.0-44.0); LYMPHOCYTE # 2.2 TH/MM3 (1.0-4.8); MEAN CORPUSCULAR HEMOGLOBIN 28.8 PG (27.0-34.0); MEAN CORPUSCULAR HGB CONC 33.5 % (32.0-36.0); MONO % 4.1 % (0.0-8.0); NEUT % 84.4 % (16.0-70.0); PLATELET COUNT 312 TH/MM3 (150-450); RED BLOOD COUNT 3.38 MIL/MM3 (4.00-5.30); RED CELL DISTRIBUTION WIDTH 14.6 % (11.6-17.2); WHITE BLOOD COUNT 19.2 TH/MM3 (4.0-11.0)
[2017-05-06 07:58] LABS: ALT (GPT) 76 U/L (10-53); ANION GAP 7 MEQ/L (5-15); AST (GOT) 36 U/L (15-37); BICARBONATE 27.7 MEQ/L (21.0-32.0); BLOOD UREA NITROGEN 8 MG/DL (7-18); CHLORIDE 102 MEQ/L (98-107); GLOMERULAR FILTRATION RATE 99 ML/MIN (>89); POTASSIUM 3.3 MEQ/L (3.5-5.1); SODIUM (NA) 137 MEQ/L (136-145)
[2017-05-06 08:00] VITALS: BP 111/68; PULSE 84; RESP 18; TEMP 97.2; O2SAT 97
[2017-05-06 08:01] LABS: ALKALINE PHOSPHATASE 134 U/L (45-117); TOTAL BILIRUBIN ADULT 0.3 MG/DL (0.2-1.0)
[2017-05-06] MEDS: CITALOPRAM HYDROBROMIDE 40 MG TAB PO SCH (08:11)
[2017-05-06] MEDS: POTASSIUM CHLORIDE 10 MEQ CONTROLLED RELEASE TAB PO SCH (08:12)
[2017-05-06] MEDS: MULTIVITAMINS/MINERALS THERAPEUTIC TAB PO SCH (08:12)
[2017-05-06] MEDS: DOCUSATE SODIUM 50 MG/SENNA 8.6 MG TAB PO SCH ×2 (08:12→20:52)
[2017-05-06] MEDS: FUROSEMIDE 80 MG TAB PO SCH (08:12)
[2017-05-06] MEDS: oxyCODONE/ACETAMINOPHEN 5 MG/325 MG TAB PO PRN (08:17)
[2017-05-06] MEDS: ENOXAPARIN SODIUM 40 MG/0.4 ML SYRINGE SQ SCH (10:45)
--- NOTE | 2017-05-06 10:58 | HHI.FPPN ---
Subjective Remarks No acute events overnight. Afebrile, vitals stable. Patient seen and examined this morning. She states her pain is relatively well controlled. She otherwise does not have any specific complaints or concerns. She denies fevers, chest pain , shortness breath, cough. Endorses positive flatus. Voiding without issues. Tolerating diet. Objective Vitals Vital Signs Date Time Temp Pulse Resp B/P (MAP) Pulse Ox O2 Delivery O2 Flow Rate FiO2 05/06/17 08:00 97.2 84 18 111/68 (82) 97 05/06/17 03:18 96.9 78 18 109/64 (79) 98 05/05/17 23:16 96.7 74 18 106/70 (82) 95 05/05/17 19:20 97.5 71 18 99/65 (76) 95 05/05/17 17:13 93 Nasal Cannula 2.00 05/05/17 15:32 93 Nasal Cannula 2.00 05/05/17 15:31 95.9 93 19 108/76 (87) 93 05/05/17 15:00 98.5 90 22 116/71 (86) 96 Nasal Cannula 3 05/05/17 14:45 89 20 114/70 (85) 97 Nasal Cannula 3 05/05/17 14:30 83 15 137/84 (101) 93 Simple Mask 8 05/05/17 14:15 82 16 132/80 (97) 96 Aerosol Mask 10 05/05/17 14:00 98.2 80 16 129/68 (88) 94 Simple Mask 10 05/05/17 11:48 97.6 108 19 126/68 (87) 96 I/O 05/05/17 05/05/17 05/05/17 05/06/17 05/06/17 05/06/17 07:00 15:00 23:00 07:00 15:00 23:00 Intake Total 0 ml 1200 ml 480 ml 720 ml Output Total 50 ml Balance 0 ml 1150 ml 480 ml 720 ml Intake Oral 0 ml 0 ml 480 ml 720 ml IV Total 1200 ml Output Estimated Blood Loss 50 ml # Voids 2 5 3 6 # Bowel Movements 0 0 0 Result Diagram: 05/06/1761805/06/17618 Objective Remarks GENERAL: Alert, NAD, lying in bed SKIN: No rashes, ecchymoses or lesions. Cool and dry. HEAD: NC/AT EYES: EOMI. No conjunctival injection or drainage. ENT: MMM NECK: Supple, no lymphadenopathy. CARDIOVASCULAR: NRRR. Normal S1/S2. No MRG RESPIRATORY: CTAB. No crackles or wheezes. GASTROINTESTINAL: Abdomen soft, non-distended, nontender MUSCULOSKELETAL: Extremities without edema. Right lower extremity wrapped, able to move all toes on the right. Sensation intact to light touch. NEUROLOGICAL: Awake and alert. Cranial nerves grossly intact. Moves upper extremities and left lower extremity without difficulty. Normal speech. A/P Assessment and Plan 46 yr F admitted for bimalleolar fracture with ankle subluxation of the right ankle from mechanical fall, admitted for surgical repair. Discharge Planning Stable for discharge home today PT recommending no PT on discharge Problem List: (1) Bimalleolar fracture of right ankle ICD Codes: S82.841A - Displaced bimalleolar fracture of right lower leg, initial encounter for closed fracture Status: Acute Plan: Left foot x-ray normal. Right foot x-ray revealed bimalleolar fracture due to mechanical fall. Orthopedic consulted, s/p ORIF Pain controlled with Percocet 5-325 q6h pain 3-5, Percocet 10-325 q6h pain 6-10 , Dilaudid 2mg PO q6h for breakthrough pain Provided prescription for norco 7.5/325 1-2 tabs po q6h prn pain by orthopedic surgery Agueda-colace 1 tab po bid (2) HTN (hypertension) ICD Codes: I10 - Essential (primary) hypertension Status: Chronic Plan: Continued furosemide 80mg daily (3) Depression with anxiety ICD Codes: F41.8 - Other specified anxiety disorders Status: Chronic Plan: Continue citalopram 40mg PO daily (4) Fibromyalgia ICD Codes: M79.7 - Fibromyalgia Status: Chronic Plan: Continue gabapentin 800mg po hs (5) Nutrition, metabolism, and development symptoms ICD Codes: R63.8 - Other symptoms and signs concerning food and fluid intake Status: Acute Plan: Diet: Regular Fluids: None DVT ppx: Lovenox while inpatient, daily aspirin after discharge per orthopedic surgery recommendations Problem Qualifiers (1) Bimalleolar fracture of right ankle: Alexey Porras MD R2 May 06, 2017 10:58
[2017-05-06] MEDS ORDERED: POTASSIUM CHLORIDE 10 MEQ CONTROLLED RELEASE TAB PO ONE (11:00)
[2017-05-06] MEDS ORDERED: WHEEMIS3 (11:01)
[2017-05-06 12:00] VITALS: BP 99/56; PULSE 80; RESP 18; TEMP 98.2; O2SAT 95
--- NOTE | 2017-05-06 13:16 | PD.ORT.PN ---
Subjective Post Op Day #: 1 Subjective Remarks doing well. Objective Vitals Vital Signs Date Time Temp Pulse Resp B/P (MAP) Pulse Ox O2 Delivery O2 Flow Rate FiO2 05/06/17 12:00 98.2 80 18 99/56 (70) 95 05/06/17 08:00 97.2 84 18 111/68 (82) 97 05/06/17 03:18 96.9 78 18 109/64 (79) 98 05/05/17 23:16 96.7 74 18 106/70 (82) 95 05/05/17 19:20 97.5 71 18 99/65 (76) 95 05/05/17 17:13 93 Nasal Cannula 2.00 05/05/17 15:32 93 Nasal Cannula 2.00 05/05/17 15:31 95.9 93 19 108/76 (87) 93 05/05/17 15:00 98.5 90 22 116/71 (86) 96 Nasal Cannula 3 05/05/17 14:45 89 20 114/70 (85) 97 Nasal Cannula 3 05/05/17 14:30 83 15 137/84 (101) 93 Simple Mask 8 05/05/17 14:15 82 16 132/80 (97) 96 Aerosol Mask 10 05/05/17 14:00 98.2 80 16 129/68 (88) 94 Simple Mask 10 I/O 05/05/17 05/05/17 05/05/17 05/06/17 05/06/17 05/06/17 07:00 15:00 23:00 07:00 15:00 23:00 Intake Total 0 ml 1200 ml 480 ml 720 ml Output Total 50 ml Balance 0 ml 1150 ml 480 ml 720 ml Intake Oral 0 ml 0 ml 480 ml 720 ml IV Total 1200 ml Output Estimated Blood Loss 50 ml # Voids 2 5 3 6 # Bowel Movements 0 0 0 Result Diagram: 05/06/1719 05/06/17618 Objective Remarks in bed, nad splint intact nvi cap refill Assessment & Plan Ortho Post Op Day #: 1 Problem List: Assessment and Plan s/p ORIF R ankle fx NWB maintain splint lovenox cleared for d/c by ortho f/up dr. murphy 1-2 weeks Shlomo Carpio May 06, 2017 13:16
[2017-05-06 16:00] VITALS: BP 99/68; PULSE 84; RESP 18; TEMP 97.5; O2SAT 94
--- NOTE | 2017-05-06 16:02 | HHI.DS ---
Discharge Summary Admission Date May 04, 2017 at 18:41 Discharge Date: May 07, 2017 Admitting Diagnosis ankle fracture (1) Bimalleolar fracture of right ankle Diagnosis: Principal Plan: Left foot x-ray normal. Right foot x-ray revealed bimalleolar fracture due to mechanical fall. Orthopedic consulted, s/p ORIF Pain controlled with Percocet 5-325 q6h pain 3-5, Percocet 10-325 q6h pain 6-10 , Dilaudid 2mg PO q6h for breakthrough pain Provided prescription for norco 7.5/325 1-2 tabs po q6h prn pain by orthopedic surgery Agueda-colace 1 tab po bid ICD Codes: S82.841A - Displaced bimalleolar fracture of right lower leg, initial encounter for closed fracture Status: Acute (2) HTN (hypertension) Diagnosis: Secondary Plan: Continued furosemide 80mg daily ICD Codes: I10 - Essential (primary) hypertension Status: Chronic (3) Depression with anxiety Diagnosis: Secondary Plan: Continue citalopram 40mg PO daily ICD Codes: F41.8 - Other specified anxiety disorders Status: Chronic (4) Fibromyalgia Diagnosis: Secondary Plan: Continue gabapentin 800mg po hs ICD Codes: M79.7 - Fibromyalgia Status: Chronic (5) Nutrition, metabolism, and development symptoms Diagnosis: Secondary Plan: Diet: Regular Fluids: None DVT ppx: Lovenox while inpatient, daily aspirin after discharge per orthopedic surgery recommendations ICD Codes: R63.8 - Other symptoms and signs concerning food and fluid intake Status: Acute Consultants Orthopedic surgery Brief History 46 yr old F presents to the ED for ankle fracture. Reports that she was stepping out on a neighbor's doorway, came down on 2 stairs, lost her balance and tripped. She landed on the concrete on her right foot and then landed no her left foot. She twisted both of her ankles, right is worse than left. She did not hit her head or have LOC. She denies dizziness and lightheadedness. She denies hx of seizures, syncope, or episodes of hypoglycemia. She denies numbness/tingling in her feet. She is able to move her toes b/l and sensation is intact. She denies HARTMANN, CP, SOB, abdominal pain, and N/V. Left Foot X-ray normal Right Foot x-ray, fracture subluxation of the right ankle, reduction and casting of medial malleolus and distal fibular fractures in the ED CBC/BMP: 05/06/17 0619 05/06/17 0619 Significant Findings Laboratory Tests Test 05/04/17 18:50 05/04/17 22:04 05/06/17 06:19 White Blood Count 14.2 TH/MM3 (4.0-11.0) 19.2 TH/MM3 (4.0-11.0) Hemoglobin 11.5 GM/DL (11.6-15.3) 9.7 GM/DL (11.6-15.3) Hematocrit 34.4 % (35.0-46.0) 29.1 % (35.0-46.0) Neutrophils # (Auto) 8.1 TH/MM3 (1.8-7.7) 16.2 TH/MM3 (1.8-7.7) Lymphocytes # (Auto) 4.9 TH/MM3 (1.0-4.8) Monocytes # (Auto) 1.0 TH/MM3 (0-0.9) Random Glucose 109 MG/DL (74-106) 148 MG/DL (74-106) Albumin 3.3 GM/DL (3.4-5.0) 3.0 GM/DL (3.4-5.0) Alkaline Phosphatase 138 U/L (45-117) 134 U/L (45-117) Alanine Aminotransferase (ALT/SGPT) 70 U/L (10-53) 76 U/L (10-53) Potassium Level 3.3 MEQ/L (3.5-5.1) 3.3 MEQ/L (3.5-5.1) Carbon Dioxide Level 32.5 MEQ/L (21.0-32.0) Anion Gap 4 MEQ/L (5-15) Estimat Glomerular Filtration Rate 87 ML/MIN (>89) Red Blood Count 3.38 MIL/MM3 (4.00-5.30) Neutrophils (%) (Auto) 84.4 % (16.0-70.0) Calcium Level 8.1 MG/DL (8.5-10.1) Imaging Last 72 hours Impressions Ankle X-Ray 05/05/17 0000 Signed Impressions: Service Date/Time: Friday, May 05, 2017 13:13 - CONCLUSION: 1. Status post internal fixation of distal fibula and medial malleolar fractures in anatomic alignment without new fracture. Gene Peterson MD Foot X-Ray 05/04/17 0000 Signed Impressions: Service Date/Time: Thursday, May 04, 2017 15:26 - CONCLUSION: Intact left foot. Waldo Gambino MD Ankle X-Ray 05/04/17 0000 Signed Impressions: Service Date/Time: Thursday, May 04, 2017 17:46 - CONCLUSION: 1. Interval reduction and casting of medial malleolus and distal fibular fractures, as above . Gene Peterson MD Ankle X-Ray 05/04/17 0000 Signed Impressions: Service Date/Time: Thursday, May 04, 2017 15:28 - CONCLUSION: Fracture subluxation of the right ankle as above. Waldo Gambino MD Ankle X-Ray 05/04/17 0000 Signed Impressions: Service Date/Time: Thursday, May 04, 2017 15:31 - CONCLUSION: 1. No acute fracture or dislocation. Gene Peterson MD PE at Discharge GENERAL: Alert, NAD, lying in bed SKIN: No rashes, ecchymoses or lesions. Cool and dry. HEAD: NC/AT EYES: EOMI. No conjunctival injection or drainage. ENT: MMM NECK: Supple, no lymphadenopathy. CARDIOVASCULAR: NRRR. Normal S1/S2. No MRG RESPIRATORY: CTAB. No crackles or wheezes. GASTROINTESTINAL: Abdomen soft, non-distended, nontender MUSCULOSKELETAL: Extremities without edema. Right lower extremity wrapped, able to move all toes on the right. Sensation intact to light touch. NEUROLOGICAL: Awake and alert. Cranial nerves grossly intact. Moves upper extremities and left lower extremity without difficulty. Normal speech. Hospital Course Orthopedic surgery was consulted. Patient underwent ORIF of right bimalleolar ankle fracture on 05/05 with [facility]. Patient was given Lovenox 40 mg sq q24h following surgery while inpatient. PT consulted, recommended wheelchair with elevated leg rest on discharge and no PT at home. Orthopedic surgery recommending daily baby aspirin on discharge. Patient was advised to follow-up with her primary care physician and orthopedic surgeon in 1-2 weeks after hospital discharge. Pt Condition on Discharge: Stable Discharge Disposition: Discharge Home Discharge Instructions DIET: Follow Instructions for: As Tolerated, No Restrictions Activities you can perform: See Additionl Instruction Other Activity Instructions: Follow instructions from your orthopedic surgeon for progress with physical therapy Follow up Referrals: Orthopedics - 1 Week with Shlomo Dixon MD PCP Follow-up - 1 Week New Medications: Aspirin (Aspirin 81 Low Dose) 81 Mg Chew 81 MG CHEW DAILY for Prevent Blood Clot, #30 TAB Hydrocodone-Acetaminophen ([place]) 7.5-325 mg Tab 1-2 TAB PO Q6H PRN for PAIN, #90 TAB 0 Refills Wheelchair Elevated Leg (Wheelchair Elevated Leg) 1 Mis Mis EA .ROUTE DIRECTED, #1 0 Refills Continued Medications: Alprazolam (Xanax) 0.5 Mg Tab 0.5 MG PO BID PRN for ANXIETY, TAB 0 Refills Citalopram (Celexa) 40 Mg Tab 40 MG PO DAILY for Control Depression, #30 TAB 0 Refills Furosemide (Furosemide) 80 Mg Tab 80 MG PO DAILY, #30 TAB 0 Refills Gabapentin (Gabapentin) 800 Mg Tab 800 MG PO HS, #90 TAB 0 Refills Pantoprazole (Pantoprazole) 20 Mg Tab 20 MG PO DAILY for Reflux, #30 TAB 0 Refills Potassium Chloride ER (K-Tab) 10 Meq Tab 10 MEQ PO DAILY for Electrolyte Replacement, #60 TAB 0 Refills Sennosides-Docusate Sodium (Senna Plus 8.6-50 mg) 1 Tab Tab 1 TAB PO BID, #60 TAB 1 Refill Discontinued Medications: Clindamycin (Clindamycin) 300 Mg Cap 300 MG PO Q6H for Infection, #32 CAP 0 Refills Hydrocodone-Acetaminophen (Hydrocodone-Acetaminophen) 5-325 mg Tab 1 TAB PO Q4H PRN for PAIN SCALE 1 TO 10, TAB 0 Refills Hydrocodone-Acetaminophen (Hydrocodone-Acetaminophen) 10-325 mg Tab 1 TAB PO Q4H PRN for pain MDD 5 for 4 Days, #20 TAB 0 Refills Ibuprofen (Ibuprofen) 600 Mg Tab 600 MG PO Q6H PRN for Pain/Inflammation, #40 TAB Lactobacillus Acidophilus (Lactobacillus Acidophilus) 1 Tab Tab 1 TAB PO TIDAC for Nutritional Supplement, #30 TAB 1 Refill Sumatriptan (Sumatriptan) 50 Mg Tab 50 MG PO BID PRN for HEADACHE, TAB 0 Refills If a satisfactory response has not been obtained at 2 hours, a second dose may be administered Kandavanam,Alexey MD R2 May 06, 2017 16:02
[2017-05-06 20:20] VITALS: BP 102/63; PULSE 78; RESP 18; TEMP 97.7; O2SAT 96
[2017-05-06] MEDS: SODIUM CHLORIDE 0.9% FLUSH 10 ML FLUSH IV FLUSH SCH (20:51)
[2017-05-06] MEDS: GABAPENTIN 400 MG CAP PO SCH (20:52)
[2017-05-07 00:22] VITALS: BP 114/69; PULSE 77; RESP 18; TEMP 97.4; O2SAT 98
[2017-05-07] MEDS: SODIUM CHLOR 0.9% 1000 ML INJ 1,000 ML IV SCH ×2 (02:00→07:44)
[2017-05-07] MEDS: oxyCODONE/ACETAMINOPHEN 5 MG/325 MG TAB PO PRN (02:53)
[2017-05-07] MEDS: ACETAMINOPHEN/HYDROcodone 325 MG/7.5 MG TAB PO PRN ×2 (06:30→10:45)
[2017-05-07] MEDS: DOCUSATE SODIUM 50 MG/SENNA 8.6 MG TAB PO SCH (07:44)
[2017-05-07] MEDS: CITALOPRAM HYDROBROMIDE 40 MG TAB PO SCH (07:44)
[2017-05-07] MEDS: MULTIVITAMINS/MINERALS THERAPEUTIC TAB PO SCH (07:44)
[2017-05-07] MEDS: FUROSEMIDE 80 MG TAB PO SCH (07:44)
[2017-05-07] MEDS: SODIUM CHLORIDE 0.9% FLUSH 10 ML FLUSH IV FLUSH SCH (07:44)
[2017-05-07 08:00] VITALS: BP 117/68; PULSE 78; RESP 18; TEMP 96.5; O2SAT 96
--- NOTE | 2017-05-07 09:42 | HHI.FPPN ---
Subjective Remarks No acute events overnight. Afebrile, vitals stable. Patient seen and examined this morning. States her pain overall is tolerable. She denies fevers, chest pain, shortness of breath, cough. Objective Vitals Vital Signs Date Time Temp Pulse Resp B/P (MAP) Pulse Ox O2 Delivery O2 Flow Rate FiO2 05/07/17 08:00 96.5 78 18 117/68 (84) 96 05/07/17 00:22 97.4 77 18 114/69 (84) 98 05/06/17 20:20 97.7 78 18 102/63 (76) 96 05/06/17 16:00 97.5 84 18 99/68 (78) 94 05/06/17 12:00 98.2 80 18 99/56 (70) 95 I/O 05/06/17 05/06/17 05/06/17 05/07/17 05/07/17 05/07/17 07:00 15:00 23:00 07:00 15:00 23:00 Intake Total 720 ml 960 ml 360 ml 360 ml Balance 720 ml 960 ml 360 ml 360 ml Intake Oral 720 ml 960 ml 360 ml 360 ml # Voids 6 8 2 3 # Bowel Movements 0 0 0 0 Result Diagram: 05/06/1761805/06/17618 Objective Remarks GENERAL: Alert, NAD, lying in bed SKIN: No rashes, ecchymoses or lesions. Cool and dry. HEAD: NC/AT EYES: EOMI. No conjunctival injection or drainage. ENT: MMM NECK: Supple, no lymphadenopathy. CARDIOVASCULAR: NRRR. Normal S1/S2. No MRG RESPIRATORY: CTAB. No crackles or wheezes. GASTROINTESTINAL: Abdomen soft, non-distended, nontender MUSCULOSKELETAL: Extremities without edema. Right lower extremity wrapped, able to move all toes on the right. Sensation intact to light touch. NEUROLOGICAL: Awake and alert. Cranial nerves grossly intact. Moves upper extremities and left lower extremity without difficulty. Normal speech. A/P Assessment and Plan 46 yr F admitted for bimalleolar fracture with ankle subluxation of the right ankle from mechanical fall, admitted for surgical repair. Discharge Planning Stable for discharge home today PT recommending no PT on discharge Problem List: (1) Bimalleolar fracture of right ankle ICD Codes: S82.841A - Displaced bimalleolar fracture of right lower leg, initial encounter for closed fracture Status: Acute Plan: Left foot x-ray normal. Right foot x-ray revealed bimalleolar fracture due to mechanical fall. Orthopedic consulted, s/p ORIF Continue norco 7.5/325 2 tabs po q6h prn pain > 6/10 Provided prescription for norco 7.5/325 1-2 tabs po q6h prn pain by orthopedic surgery as outpatient Agueda-colace 1 tab po bid (2) HTN (hypertension) ICD Codes: I10 - Essential (primary) hypertension Status: Chronic Plan: Continued furosemide 80mg daily (3) Depression with anxiety ICD Codes: F41.8 - Other specified anxiety disorders Status: Chronic Plan: Continue citalopram 40mg PO daily (4) Fibromyalgia ICD Codes: M79.7 - Fibromyalgia Status: Chronic Plan: Continue gabapentin 800mg po hs (5) Nutrition, metabolism, and development symptoms ICD Codes: R63.8 - Other symptoms and signs concerning food and fluid intake Status: Acute Plan: Diet: Regular Fluids: None DVT ppx: Lovenox while inpatient, daily aspirin after discharge per orthopedic surgery recommendations Problem Qualifiers (1) Bimalleolar fracture of right ankle: Alexey Porras MD R2 May 07, 2017 09:42
[2017-05-07] MEDS: ENOXAPARIN SODIUM 40 MG/0.4 ML SYRINGE SQ SCH (10:46)
[2017-05-07 12:00] VITALS: BP 112/65; PULSE 74; RESP 18; TEMP 98; O2SAT 96
[2017-05-07] MEDS ORDERED: ACETAMINOPHEN/HYDROcodone 325 MG/7.5 MG TAB PO PRN (12:30)
== END 2017-05-07 12:47 | disposition home or self-care (01) | DRG 494 ==
LOC: NEPE 14:41 → NEDA 17:57 → OBSVTOIN 18:41 → N06B 20:28
PROVIDERS: ADMIT Family Medicine; ATTEND Family Medicine
PROC: 0SSFXZZ Reposition Right Ankle Joint, External Approach (ICD-10-PCS; 2017-05-04)
PROC: 0QSJ04Z Reposition Right Fibula with Internal Fixation Device, Open Approach (ICD-10-PCS; 2017-05-05)
PROC: 0QSG04Z Reposition Right Tibia with Internal Fixation Device, Open Approach (ICD-10-PCS; principal; 2017-05-05 12:08)
DX: S82.841A Displaced bimalleolar fracture of right lower leg, initial encounter for closed fracture (principal); I10 Essential (primary) hypertension; F31.9 Bipolar disorder, unspecified; F17.210 Nicotine dependence, cigarettes, uncomplicated; W10.9XXA Fall (on) (from) unspecified stairs and steps, initial encounter; K21.9 Gastro-esophageal reflux disease without esophagitis; M79.7 Fibromyalgia; Y93.01 Activity, walking, marching and hiking; F41.8 Other specified anxiety disorders; S93.01XA Subluxation of right ankle joint, initial encounter
CPT/HCPCS: 73600; 73610; 73630; 76000; 80053; 82948; 85025; 85610; 85730; 93005; 94150; 94664; 96374; C1713; J0131; J1170; J1580; J1650; J1885; J2310; J2405; J2920; J2930; J3370; J7030; J7120; J7613

== ENCOUNTER → 2017-05-23 | Outpatient (CLI) | payer OTHER ==
[~2017-05-23] MED LIST changes: +ASPI1CHW4 CHEW; -CLIN300C5 PO; +HYDR-3288 PO; -HYDR-3516 PO; -HYDR-3583 PO; -IBUP-232 PO; -LACTTAB8 PO; -SUMA50TA2 PO; +WHEEMIS3
== END ==
LOC: HORT 14:51
PROVIDERS: ATTEND Orthopaedic Surgery Sports Medicine
DX: Z47.89 Encounter for other orthopedic aftercare (principal)
CPT/HCPCS: L2114